=== PATIENT | female | born 2000 | race Caucasian/White ===

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

== ENCOUNTER → 2022-02-03 12:00 | Outpatient (BNVA) | payer OTHER, BC, MEDICAID, SELFPAY | PROVIDERS: PCP Family Medicine; Visit Provider Family Medicine | DX: Z34.00 Encounter for supervision of normal first pregnancy, unspecified trimester (principal) | CPT/HCPCS: 81511 ==

== ENCOUNTER 2022-03-05 07:19 | Outpatient (CLI) | payer OTHER, BC, MEDICAID, SELFPAY ==
--- NOTE | 2022-03-05 07:15 | US_ITS ---
WS: [id number] ULTRASOUND OB COMPLETE TECHNIQUE: Complete ultrasound. CLINICAL INFORMATION: Anatomy US - Please schedule for 8 weeks from now COMPARISON: December 22, 2021 FINDINGS: Cervix measures 2.7 cm Single interuterine gestation is identified with cephalic presentation. Placenta is anterior. Placenta grade 0. Normal amniotic fluid volume. cardiac activity: 141 BPM. AGA: 21w1d CURRY by ultrasound: 07/15/2022 Estimated weight: 397 g., %. BDP: 5.2 cm = 21w5d HC: 18.3 cm = 20w5d AC: 16.7 cm = 21w5d FEMUR LENGTH: 3.3 cm = 20w2d Anatomic survey: Anatomic survey is normal. Normal stomach. Kidneys and bladder are normal. Normal 3 vessel cord. Norm al 3 vessel cord insertion. Normal 4 chamber heart. Normal spine. Intracranial contents are normal. N ormal posterior fossa and cisterna magna. US/US OB >= 14 weeks fetus [id number] IMPRESSION: 1. Single intrauterine with visualized cardiac activity. AGA 21w1d w ith CURRY 07/15/2022. 2. Placenta is anterior. No evidence of abruption or previa. 3. anatomic survey is normal. 4. Normal amniotic fluid volume.
== END 2022-03-05 07:20 | disposition home or self-care (01) ==
LOC: RAD 07:19
PROVIDERS: PCP Family Medicine; Visit Provider Family Medicine
DX: Z36.89 Encounter for other specified antenatal screening (principal); Z3A.21 21 weeks gestation of pregnancy
CPT/HCPCS: 76805

== ENCOUNTER → 2022-04-07 14:18 | Outpatient (BNVA) | payer OTHER, BC, MEDICAID, SELFPAY | PROVIDERS: PCP Family Medicine; Visit Provider Family Medicine | DX: Z34.00 Encounter for supervision of normal first pregnancy, unspecified trimester (principal) | CPT/HCPCS: 82950 ==

== ENCOUNTER → 2022-05-27 12:57 | Outpatient (BNVA) | payer OTHER, BC, MEDICAID, SELFPAY | PROVIDERS: PCP Family Medicine; Visit Provider Family Medicine | DX: Z34.00 Encounter for supervision of normal first pregnancy, unspecified trimester (principal); R30.0 Dysuria | CPT/HCPCS: 81000; 85025; 87086 ==

== ENCOUNTER 2022-06-15 04:41 | Outpatient (CLI) | payer OTHER, BC, MEDICAID, SELFPAY ==
[2022-06-15 05:11] VITALS: BP 108/60; PULSE 99
[2022-06-15 05:13] VITALS: BMI 32.4
[2022-06-15 05:32] VITALS: BP 110/71; PULSE 97
[2022-06-15 05:37] VITALS: PULSE 100; RESP 16
[2022-06-15 05:51] VITALS: BP 114/69; PULSE 104
[2022-06-15 06:11] VITALS: BP 101/56; PULSE 84
[2022-06-15 06:28] LABS: Urine Appearance Clear (CLEAR); Urine Color Yellow (Yellow); pH Urine 7 (5-7)
[2022-06-15 06:29] LABS: Bilirubin Urine Neg (Negative); Blood Urine Neg (Negative); Glucose Urine UA Norm (Normal); Ketones Urine Negative (Negative); Leukocyte Esterase Urine Trace (Negative); Nitrate Urine Negative (Negative); Protein Urine Neg (Negative); Urobilinogen Urine Neg (Negative)
[2022-06-15 06:32] VITALS: BP 119/74; PULSE 92
[2022-06-15 06:34] LABS: Add Urine Culture? No; Amorphous Sediment Urine 1+ /hpf; Bacteria Urine TRACE /hpf; Mucus Urine 1+ /hpf; RBC Urine 0-4 /hpf (0-2); Squamous Epithelial Cell Urine 0-4 /hpf (0-5); WBC Urine 0-4 /hpf (0-5)
== END 2022-06-15 06:56 | disposition home or self-care (01) ==
LOC: OPOB 04:46 → OBGYN 04:47
PROVIDERS: PCP Family Medicine; Visit Provider Family Medicine
DX: O26.899 Other specified pregnancy related conditions, unspecified trimester (principal); N89.8 Other specified noninflammatory disorders of vagina; Z3A.00 Weeks of gestation of pregnancy not specified
CPT/HCPCS: 59025; 81001; 83986; 99211

== ENCOUNTER → 2022-06-24 13:34 | Outpatient (BNVA) | payer OTHER, BC, MEDICAID, SELFPAY | PROVIDERS: PCP Family Medicine; Visit Provider Family Medicine | DX: Z34.90 Encounter for supervision of normal pregnancy, unspecified, unspecified trimester (principal) | CPT/HCPCS: 87081 ==

== ENCOUNTER 2022-07-15 00:55 | Outpatient (CLI) | payer OTHER, BC, MEDICAID, SELFPAY ==
[2022-07-15 00:44] VITALS: BMI 34.0
[2022-07-15 01:04] VITALS: BP 119/83; PULSE 100
[2022-07-15 01:17] VITALS: RESP 18
[2022-07-15 01:19] VITALS: BP 117/83; PULSE 106
[2022-07-15 01:35] VITALS: BP 114/74; PULSE 87
[2022-07-15 01:40] LABS: Nitrazine Paper, PH Negative
[2022-07-15 01:41] VITALS: TEMP 36.2
[2022-07-15 02:05] VITALS: BP 108/75; PULSE 96
== END 2022-07-15 02:20 | disposition home or self-care (01) ==
LOC: OPOB 00:56 → OBGYN 00:57
PROVIDERS: PCP Family Medicine; Visit Provider Family Medicine
DX: O47.9 False labor, unspecified (principal); Z3A.00 Weeks of gestation of pregnancy not specified
CPT/HCPCS: 59025; 83986; 99211

== ENCOUNTER 2022-07-25 04:21 | Outpatient (CLI) | payer OTHER, BC, MEDICAID, SELFPAY ==
[2022-07-25 04:20] VITALS: BMI 34.0
[2022-07-25 04:32] VITALS: BP 119/84; PULSE 86
[2022-07-25 04:45] VITALS: TEMP 35.9
[2022-07-25 04:48] VITALS: BP 123/85; PULSE 86
[2022-07-25 06:23] VITALS: BP 132/83; PULSE 95
[2022-07-25 06:38] VITALS: BP 124/79; PULSE 91
[2022-07-25 06:45] VITALS: BP 124/79; PULSE 91; RESP 18
== END 2022-07-25 06:58 | disposition home or self-care (01) ==
LOC: OPOB 04:21 → OBGYN 04:24
PROVIDERS: PCP Family Medicine; Visit Provider Family Medicine
DX: O47.9 False labor, unspecified (principal); Z3A.00 Weeks of gestation of pregnancy not specified
CPT/HCPCS: 59025; 99211

== ENCOUNTER 2022-07-26 00:09 | Inpatient (IN) | payer OTHER, BC, MEDICAID, SELFPAY ==
[2022-07-25 22:00] VITALS: BMI 34.0
[2022-07-25 22:03] VITALS: BP 138/95; PULSE 115
[2022-07-25 22:08] VITALS: RESP 18; TEMP 36.6
[2022-07-25 22:18] VITALS: BP 124/79; PULSE 98
[2022-07-25 22:31] LABS: Actim Prom Negative
[2022-07-25 22:33] VITALS: BP 124/78; PULSE 105
[2022-07-25 22:48] VITALS: BP 108/68; PULSE 95
[2022-07-26] VITALS (57 sets, daily range): BP systolic 90–170; BP diastolic 52–108; PULSE 86–141; RESP 18; TEMP 36.2–37.9; O2SAT 91–98
[2022-07-26 00:24] LABS: Basophils # 0.1 10^3/uL (0.0-0.1); Basophils % 0.2 %; Eosinophils # 0.1 10^3/uL (0.0-0.8); Eosinophils % 0.4 %; Lymphocytes # 2.6 10^3/uL (1.5-6.5); Lymphocytes % 12.1 %; Mean Corpuscular HGB Conc 33.3 g/dL (30.0-36.0); Mean Corpuscular Hemoglobin 28.2 pg (28.0-34.0); Mean Corpuscular Volume 84.6 fl (81-99); Mean Platelet Volume 10.5 fL (7.4-10.4); Monocytes % 4.5 %; Neutrophils # 17.69 10^3/uL (1.8-8.0); Neutrophils % 81.8 %; Nucleated Red Blood Cells % 0 %; Platelet Count 266 10^3/cmm (130-400); Red Blood Count 4.61 10^6/uL (4.1-5.3); Red Cell Distribution Width 14.2 % (12.1-15.1); White Blood Count 21.6 10^3/uL (4.5-13.0)
[2022-07-26] MEDS: ampicillin 2,000 MG in sodium chloride 0.9% (plus) 50 ML 100 MG IV (00:24)
[2022-07-26] MEDS: lactated ringers 1,000 ML 999 ML IV (00:24)
--- NOTE | 2022-07-26 01:50 | P.ANESASSM_ITS ---
Pre-Anesthetic Assessment Height/Weight: Height 1.68 m Weight 95.708 kg Temp Pulse Resp BP Pulse Ox 97.9 F 117 H 18 143/60 97 07/25/22 22:08 07/26/22 01:43 07/25/22 22:08 07/26/22 01:43 07/26/22 01:43 Preop Diagnosis: IUP Labor Epidural Familial anesthetic complications: None Social No alcohol and No tobacco Exam alert, oriented x 3 and clear to auscultation bilaterally Airway Submandibular: within normal limits Cervical ROM: within normal limits Mallampati: Class II Dentition: full History/ROS No significant history except as noted Pulmonary None reported CV/HEM None reported None reported Hepatic None reported GI None reported Metabolic None reported Musc/skel None reported Neuropsych Anxiety and Depression Anesthetic Plan ASA status: 2 Anesthesia: Regional (specify below) Other: Labor Epidural Medications/Allergies Home Medications Medication Instructions Recorded Confirmed Last Taken Type msnxxhtt-hbz-Sg-FA 1 mg 1 tab PO DAILY 07/15/22 07/26/22 07/14/22 08:00 History tablet Allergies Allergy/AdvReac Type Severity Reaction Status Date / Time Sulfa (Sulfonamide Allergy ADR-Numbnes Verified 07/26/22 00:46 Antibiotics) s Current Medications Generic Name Dose Route Start Last Admin Trade Name Freq PRN Reason Stop Dose Admin Lactated Ringer's 1,000 mls @ 999 mls/hr 07/26/22 00:12 07/26/22 00:24 Lactated Ringers IV 999 mls/hr .Q1H1M PRN Administration See label comments PFSH Anesthesia Medical History No significant past medical history Surgical History No significant past surgical history [place] teeth extracted Social History Smoking and tobacco status: never smoked Alcohol intake: never Substance/Drug Use: never Female Reproductive History : 2 Data Anesthesia 07/26/22 00:15 Short CBC 07/26/22 Range/Units 00:15 WBC 21.6 H (4.5-13.0) 10^3/uL Hgb 13.0 (11.5-15.3) g/dL Hct 39.0 (37.0-47.0) % MCV 84.6 (81-99) fl Plt Count 266 (130-400) 10^3/cmm Neut % (Auto) 81.8 % Neut # (Auto) 17.69 H (1.8-8.0) 10^3/uL Cardiac Studies: No Data to Display Anesthesia Procedures Epidural Time Out Performed: Yes Consent: from patient, risks and benefits reviewed and patient agrees to proceed Lumbar Level: L3-L4 Epidural position: sitting Epidural procedure: sterile prep of area, 1% lidocaine to numb the area, negative for paresthesia passed, test dose given, 1.5% xylocaine 1:200k epi, placed PCEA, no systemic response, sterile dressing applied, L.U.D. no apparent complications and 0.2% Ropiavacaine @ mls/hr (13) Additional Comments: MASON at 7.5 cm catheter threaded to 14cm 100 mcg fentanyl given via epidural after test dose.
[2022-07-26] MEDS: dextrose 5%-lactated ringers 1,000 ML 125 ML IV (02:11)
[2022-07-26] MEDS: ampicillin 1,000 MG in sodium chloride 0.9% (plus) 50 ML 100 MG IV (04:18)
--- NOTE | 2022-07-26 07:16 | PM.HP ---
Providers/Chief Complaint Admitting Physician: Godfrey Morales MD Primary Care Provider: Sanket Tolliver MD Chief Complaint: contractions and possible ROM History of Present Illness Shelly Ramey is a 22 year old @ 40.4 weeks by LMP c/w 9 wk US. Preg c/b recent miscarriage (06/2021), anemia, anxiety on Lexapro. The patient presented to labor and delivery late in the evening on 07/25/2022 due to contractions. She had been having increased contractions over the last 36 hours, however they were worsening, so the she presented for further evaluation. She also had concern for spontaneous rupture of membranes. In triage her active problem was negative, however she did make change after 1 hour, so she was admitted for spontaneous labor. The patient feels well at this time. She has been ondina overnight and has received a laboring epidural. heart tones are in the 140s with moderate variability good accelerations. Contractions are every 2 to 3 minutes. The patient denies any bleeding. Medications/Allergies Home Medications Medication Instructions Recorded Confirmed Last Taken Type chgxikfl-tnz-Bv-FA 1 mg 1 tab PO DAILY 07/15/22 07/26/22 07/14/22 08:00 History tablet Allergies Allergy/AdvReac Type Severity Reaction Status Date / Time Sulfa (Sulfonamide Allergy ADR-Numbnes Verified 07/26/22 00:46 Antibiotics) s PFSH Acute PFSH: Medical History (Updated 07/26/22 @ 07:19 by Godfrey Morales MD) No significant past medical history Surgical History No significant past surgical history [place] teeth extracted Social History Smoking and tobacco status: never smoked Alcohol intake: never Substance/Drug Use: never Female Reproductive History: Date of last menstrual period: 10/15/21 : 2 Vitals/I&O/Wt Last Vital Signs Temp 97.2 F L 07/26/22 04:09 Pulse 141 H 07/26/22 07:12 Resp 18 07/25/22 22:08 BP 115/56 07/26/22 07:12 Pulse Ox 97 07/26/22 01:43 O2 Del Method Room Air 07/26/22 03:14 07/25/22 07/26/22 07/26/22 22:59 06:59 14:59 Intake Total 1100 / 1100 Balance 1100 / 1100 Weight last 48 hrs Weight 211 lb Physical Exam Narrative: General: Alert and oriented x3 Eyes: Pupils equal round and reactive to light and accommodation Mouth: Mucous membranes moist, pharynx non-erythematous Cardiac: Regular rate and rhythm without murmurs Lungs: Clear to auscultation bilaterally without wheezes, crackles or rhonchi Abdomen: Soft, non-tender, fundus consistent with gestational age Extremities: Trace edema in the bilateral lower extremities Urinary Catheter Management: Harvey Latex: Cath Placed During This Visit: yes Reason for Continuing Indwelling Catheter: Other Urinary Catheter Date of Insertion: 07/26/22 Urinary Catheter Time of Insertion: 02:08 Data 07/26/22 00:15 A&P Assessment and plan (1) Supervision of normal intrauterine in primigravida: The patient is doing well at this time. She has made good change overnight on her own and is now complete. We will start pushing. She had an elevated white blood cell count. She has not had any fevers. We will watch for other signs of chorioamnionitis. We will watch for any signs of complications. The patient has GBS and she has been receiving ampicillin for prophylaxis. Attestations Medical Necessity Statement*: The patient will be here for greater than 2 midnights due to routine intrapartum and management of labor and delivery. Coding Level of Care Code Acute Code for Chg Fwd Diagnoses Supervision of normal intrauterine in primigravida Z34.00
--- NOTE | 2022-07-26 08:39 | P.PCNOB_ITS ---
Delivery Note: Date of delivery: July 26, 2022 Pre-delivery diagnoses: 1. Intrauterine at 40.4 weeks gestation 2. Leukocytosis 3. Anxiety 4. Spontaneous labor Post-delivery diagnoses: 1. Intrauterine status post spontaneous vaginal delivery at 40.4 weeks gestation 2. Leukocytosis 3. Anxiety 4. Delivery of healthy female weighing 8 pounds 2 ounces with Apgars of 8 and 9 Procedure: Spontaneous vaginal delivery Repair of second-degree vaginal wall laceration Delivering Physician: Godfrey Morales MD Estimated blood loss (mL): 100 Findings: 1. Healthy infant female weighing 8 pounds 2 ounces with Apgars of 8 and 9 2. Second-degree right vaginal wall laceration with repair Pre-Delivery Course: Shelly Ramey is a 22 year old G2 now P1 status post spontaneous vaginal delivery @ 40.4 weeks by LMP c/w 9 wk US. Preg c/b recent miscarriage (06/2021), anemia, anxiety on Lexapro. The patient presented to labor and delivery late in the evening on 07/25/2022 due to contractions.? She had been having increased contractions over the last 36 hours, however they were worsening, so the she presented for further evaluation.? She also had concern for spontaneous rupture of membranes.? In triage her actim prom was negative, however she did make change after 1 hour, so she was admitted for spontaneous labor. She contracted overnight and has received a laboring epidural.? heart tones were category 1.? The patient made gradual change and spontaneous rupture of membranes took place at 3:28 AM on 07/26/2022. This was lightly stained with meconium. The patient continued to make steady change and was complete by 6:40 AM on 07/26/2022. Delivery: The patient began pushing at 6:55 AM on 07/26/2022. The patient pushed well and the delivered in the OA position at 8:04 AM on 07/26/2022. There was no nuchal cord. The left shoulder was anterior shoulder and it delivered with steady downward pressure. The right arm then delivered on its own across the 's body. The right shoulder then delivered with upward pressure. The rest of the infant delivered without complication. It was an uncomplicated delivery. The infant's nose and mouth were bulb suctioned by myself. The was vigorous at and cried immediately. The was placed on the mother's chest where the nurses were waiting to care for her. The cord was clamped by myself after approximately 1 minute and cut by the infant's father. Cord blood was obtained. The cord was then drained of blood and traction was placed on umbilical cord. Uterine massage was carried out and the placenta delivered without complication at 8:08 AM on 07/26/2022. The placenta was noted to be intact with a central umbilical cord insertion site. The uterus was massaged and IV Pitocin was bolused. There was initial heavy bleeding that decreased rapidly with IV Pitocin bolus. The cervix was inspected and no lacerations were noted. The vaginal wall was inspected and there is a small first-degree tear on the left vaginal wall. This was not bleeding and did not need suturing. There is another second-degree tear on the right vaginal wall and this was bleeding, so 3-0 Vicryl was used to repair the laceration in a running fashion. No further anesthesia was necessary as the epidural was giving sufficient anesthesia. A rectal exam was done and no sutures were noted in the rectal vault. The patient tolerated the procedure well. Currently both the mother and infant are doing well. History History History 2 Term 1 0 Miscarriages/Ectopic 1 Living Children 1 Past Pregnancies Del. Date GA/Weeks Outcome Route Wt Inf Gender Labor Lgth Comp. Anesth esia Location 06/18/21 8 spontaneous 07/26/22 40 live - full term Vaginal 8 lb 2 oz Female 8 [facility], [place], operated by [facility] A&P Assessment and plan (1) Spontaneous vaginal delivery: Coding Level of Care Code Acute Code for Chg Fwd Diagnoses Spontaneous vaginal delivery O80
[2022-07-26] MEDS: docusate sodium 100 mg Capsule PO (17:47)
[2022-07-26 21:49] LABS: Hematocrit 31.2 % (37.0-47.0); Hemoglobin 10.2 g/dL (11.5-15.3); Mean Corpuscular HGB Conc 32.7 g/dL (30.0-36.0); Mean Corpuscular Hemoglobin 28.2 pg (28.0-34.0); Mean Corpuscular Volume 86.2 fl (81-99); Mean Platelet Volume 10.4 fL (7.4-10.4); Platelet Count 239 10^3/cmm (130-400); Red Blood Count 3.62 10^6/uL (4.1-5.3); Red Cell Distribution Width 14.2 % (12.1-15.1); White Blood Count 24.4 10^3/uL (4.5-13.0)
[2022-07-27] VITALS (7 sets, daily range): BP systolic 111–120; BP diastolic 62–72; PULSE 78–101; RESP 17–18; TEMP 35.8–36.7
[2022-07-27] MEDS: docusate sodium 100 mg Capsule PO (09:58)
[2022-07-27] MEDS: benzocaine-menthol 78 gm Canister 1 SPRAY TOPICAL (14:20)
--- NOTE | 2022-07-27 14:31 | PM.DCS ---
Discharge Providers Date of Admission: 07/26/22 00:09 Date of Discharge: July 27, 2022 Attending Provider at Admission: Godfrey Morales MD Attending Provider at Discharge: Godfrey Morales MD Primary Care Provider: Sanket Tolliver MD Diagnoses at Discharge Discharge Diagnosis (1) Spontaneous vaginal delivery: Status: Resolved Other Information Additional DC diagnoses/information: 1.? Intrauterine status post spontaneous vaginal delivery at 40.4 weeks gestation 2.? Leukocytosis 3.? Anxiety 4.? Delivery of healthy female weighing 8 pounds 2 ounces with Apgars of 8 and 9 Reason for Visit Reason for Visit: contractions and possible ROM Brief History: Shelly Ramey is a 22 year old G2 now P1 status post spontaneous vaginal delivery @ 40.4 weeks by LMP c/w 9 wk US. Preg c/b recent miscarriage (06/2021), anemia, anxiety on Lexapro. The patient presented to labor and delivery late in the evening on 07/25/2022 due to contractions.? She had been having increased contractions over the last 36 hours, however they were worsening, so the she presented for further evaluation.? She also had concern for spontaneous rupture of membranes.? In triage her actim prom was negative, however she did make change after 1 hour, so she was admitted for spontaneous labor. Hospital Course Hospital Course She contracted overnight and has received a laboring epidural.? heart tones were category 1.? The patient made gradual change and spontaneous rupture of membranes took place at 3:28 AM on 07/26/2022.? This was lightly stained with meconium.? The patient continued to make steady change and was complete by 6:40 AM on 07/26/2022. The patient began pushing at 6:55 AM on 07/26/2022.? The patient pushed well and the delivered in the OA position at 8:04 AM on 07/26/2022.? The patient had an uncomplicated vaginal delivery. she has done well. She is breast-feeding well. Her pain is well controlled. Her bleeding is decreasing well. She is ambulating, voiding, passing gas and tolerating food by mouth. She is afebrile. Routine discharge instructions were discussed. All questions were answered. She is to let me know if she is having any concerns or complications prior to her follow-up appointment. The patient and her significant other are in agreement with the current plan of care. Physical Exam Urinary Catheter Management: Harvey Latex: Cath Placed During This Visit: yes, but has since been removed by the nurse Reason for Continuing Indwelling Catheter: Decision to DC Catheter Urinary Catheter Date of Insertion: 07/26/22 Urinary Catheter Time of Insertion: 02:08 Date Urinary Catheter Removed: 07/26/22 Time Urinary Catheter Discontinued: 06:55 Discharge Data Studies Completed and Pending Laboratory Results WBC 24.4 10^3/uL (4.5-13.0) H 07/26/22 21:19 RBC 3.62 10^6/uL (4.1-5.3) L 07/26/22 21:19 Hgb 10.2 g/dL (11.5-15.3) L 07/26/22 21:19 Hct 31.2 % (37.0-47.0) L 07/26/22 21:19 MCV 86.2 fl (81-99) 07/26/22 21:19 MCH 28.2 pg (28.0-34.0) 07/26/22 21:19 MCHC 32.7 g/dL (30.0-36.0) 07/26/22 21:19 RDW 14.2 % (12.1-15.1) 07/26/22 21:19 Plt Count 239 10^3/cmm (130-400) 07/26/22 21:19 MPV 10.4 fL (7.4-10.4) 07/26/22 21:19 Neut % (Auto) 81.8 % 07/26/22 00:15 Lymph % (Auto) 12.1 % 07/26/22 00:15 [place] % (Auto) 4.5 % 07/26/22 00:15 Eos % (Auto) 0.4 % 07/26/22 00:15 Baso % (Auto) 0.2 % 07/26/22 00:15 Neut # (Auto) 17.69 10^3/uL (1.8-8.0) H 07/26/22 00:15 Lymph # (Auto) 2.6 10^3/uL (1.5-6.5) 07/26/22 00:15 [place] # (Auto) 1.0 10^3/uL (0.2-0.9) H 07/26/22 00:15 Eos # (Auto) 0.1 10^3/uL (0.0-0.8) 07/26/22 00:15 Baso # (Auto) 0.1 10^3/uL (0.0-0.1) 07/26/22 00:15 Nucleated RBC % (auto) 0 % 07/26/22 00:15 Nucleated RBCs # 0.0 /100WBC 07/26/22 00:15 Insulin-like GF I Negative 07/25/22 22:10 Vitals Last Vital Signs Temp 96.6 F L 07/27/22 09:19 Pulse 78 07/27/22 09:20 Resp 18 07/27/22 09:00 BP 111/72 07/27/22 09:20 Pulse Ox 97 07/26/22 01:43 O2 Del Method Room Air 07/26/22 03:14 Discharge Plan Discharge Patient Disposition: Home Condition: Good Prescriptions: New ibuprofen 800 mg Tablet 800 mg PO TID Qty: 30 0RF Continued lvykqyxa-qtj-Wd-FA 1 mg Tablet 1 tab PO DAILY Discharge Orders: Discharge Order (Routine); Ordered 07/27/22 Ordered By: Godfrey Morales Referrals: Godfrey Morales MD [Physician] - 09/01/22 1:30 pm (Sooner if needed.) Discharge Diet: Regular Discharge Activity: Increase activity as tolerated Patient Instructions: Depression (DC), Bleeding (DC), Preeclampsia and Eclampsia After Delivery (GEN), Vaginal Delivery (DC), OB Discharge Report, OB Food/Drug Interaction Guide, Opioid Safety, OB Home Care, OB Proud Parent Packet Activity Restrictions/Additional Instructions: Nothing per vagina for 6 weeks. Showers are preferred instead of baths for the first 6 weeks. Discharge Attestations Time Spent in Discharge Care*: less than 30 min Quality Metrics Clinical Quality Measures [ No reported AMI, CVA or VTE this stay] Coding Level of Care Code Acute Code for Chg Fwd Diagnoses Spontaneous vaginal delivery O80
--- NOTE | 2022-07-27 16:47 | ANE.PACU2 ---
Inpatient post-anesthesia follow up: Airway intact: Yes Vital signs: Temperature 97.9 F Pulse Rate 85 Respiratory Rate 17 Blood Pressure 120/62 Pulse Oximetry 97 Oxygen Delivery Me thod Room Air Oxygen Flow Rate Fraction of Inspir ed Oxygen Hydration adequate: Yes Nausea and vomiting: No Pain level: 2 Mental status: Baseline
== END 2022-07-27 16:24 | disposition home or self-care (01) | DRG 807 ==
LOC: OPOB 00:10 → OBGYN 00:10
PROVIDERS: Admitting Provider Family Medicine; PCP Family Medicine; Visit Provider Family Medicine
DX: O48.0 Post-term pregnancy (principal); Z37.0 Single live birth; Z3A.40 40 weeks gestation of pregnancy; Z88.2 Allergy status to sulfonamides; O99.02 Anemia complicating childbirth; D64.9 Anemia, unspecified; O99.344 Other mental disorders complicating childbirth; O70.1 Second degree perineal laceration during delivery
CPT/HCPCS: 36415; 51702; 59025; 59409; 84112; 85025; 85027; 96374; 98960; 99211; J0290; J2795; J3010; J7040; J7120; J7121

== ENCOUNTER 2022-12-21 15:29 | Emergency (ER) | payer OTHER, BC, MEDICAID, SELFPAY ==
[2022-12-21 15:33] VITALS: BP 112/81; PULSE 110; RESP 17; TEMP 36.6; O2SAT 97; BMI 33.2
--- NOTE | 2022-12-21 16:15 | ED_ITS ---
Documented by User: [email or web address] Crenshaw 12/21/22 16:18 HPI - Nausea/Vomiting/Diarrhea General: Chief complaint: Nausea/Vomiting/Diarrhea Stated complaint: throwing up Time Seen by Provider: 12/21/22 15:46 Source: patient Mode of arrival: ambulatory Limitations: no limitations History of Present Illness: Patient is a 22-year-old female who presents to ED today [facility] for concerns of possible dehydration. Patient states she woke this morning with complaints of nausea, vomiting, diarrhea, abdominal cramping. She states she has had approximately 6 episodes of vomiting and 8 episodes of diarrhea total. She denies bloody emesis or stools. She is not running fevers. She does states she ate pork patties yesterday evening for dinner but states other people in the home also ate the meat and did not become ill. MD elicited complaint: nausea, vomiting, diarrhea and abdominal pain Description of diarrhea: watery Associated nausea: Yes Associated abdominal pain: Yes Location of pain: Diffuse Radiation: diffuse Pain consistency: intermittent Severity: mild Quality: cramping Exacerbating factors: eating Relieving factors: bowel movement Associated symtoms: Reports nausea; Denies chest pain, dysuria, fatigue, headache(s) or malaise Review of Systems Const: Denies: fever(s), chills, body aches, fatigue or malaise Card: Denies: chest pain Resp: Denies: dyspnea GI: Reports: abdominal pain, nausea, vomiting and diarrhea; Denies: hematemesis, hematochezia, melena, mucus in stool or white/light colored stool : Denies: flank pain, dysuria or hematuria Musc: Denies: neck pain, back pain, extremity pain or joint pain Skin/Breast: Denies: rash Neuro: Denies: headache(s), numbness in extremities, weakness in extremities or sensory changes PFS ED PFSH: Surgical History No significant past surgical history [place] teeth extracted Social History Smoking and tobacco status: never smoked Alcohol intake: never Substance/Drug Use: never Physical Exam Const: COMMON NORMALS: no acute distress, patient oriented x3, no limitations, alert and well nourished GENERAL APPEARANCE: cooperative NUTRITIONAL APPEARANCE: overweight ORIENTATION/CONSCIOUSNESS: Yes awake, Yes oriented to person, Yes oriented to place and Yes oriented to time Eye: COMMON NORMALS: no scleral icterus Resp: COMMON NORMALS: normal respiratory effort and clear to auscultation bilaterally AUSCULTATION: clear to auscultation bilaterally Cardio: COMMON NORMALS: regular rhythm RATE: tachycardic RHYTHM: regular rhythm GI: COMMON NORMALS: Normal to inspection, nondistended, normoactive bowel sounds present, Soft to palpation, non-tender, No hepatosplenomegaly present and no masses PALPATION: Yes Soft to palpation and Yes No hepatosplenomegaly present : COMMON NORMALS: Yes no CVA tenderness BLADDER/KIDNEY EXAM: Yes no CVA tenderness Back/Pelvis: COMMON NORMALS: no CVA tenderness Extremity: COMMON NORMALS: normal to inspection GENERAL: Yes normal exam except as noted Neuro: LIVAN COMA SCALE: document GCS findings Livan coma scale eye opening: Spontaneous Livan coma scale verbal response: Orientated Livan coma scale motor response: Obey commands [place] coma scale total score: 15 COMMON NORMALS: patient oriented x3, moves all extremities, no focal motor deficits and no sensory deficits noted SENSORIUM/ORIENTATION: Yes alert, Yes oriented to person, Yes oriented to place and Yes oriented to time MOTOR EXAM: 5/5 motor strength present throughout Skin: COMMON NORMALS: no rashes or lesions noted GENERAL SKIN EXAM: no rashes or lesions noted Course Vital Signs: Vital signs: Vital Signs Temperature 97.9 F 12/21/22 15:33 Pulse Rate 83 12/21/22 18:25 Respiratory Rate 16 12/21/22 18:25 Blood Pressure 133/83 12/21/22 18:25 Pulse Oximetry 98 12/21/22 18:25 Oxygen Delivery Me thod Room Air 12/21/22 17:47 MDM - Nausea/Vomiting/Diarrhea Lab Data 12/21/22 16:28 12/21/22 16:28 Laboratory Results WBC 14.62 10^3/uL (4.5-13.0) H 12/21/22 16:28 RBC 5.97 10^6/uL (3.85-5.65) H 12/21/22 16:28 Hgb 16.50 g/dL (12.4-14.8) H 12/21/22 16:28 Hct 50.1 % (36-47) H 12/21/22 16: MCV 83.9 fl (85-98) L 12/21/22 16: MCH 27.6 pg (27-33) 12/21/22 16: MCHC 32.9 g/dL (30-55) 12/21/22 16: RDW 14.5 % (12.1-15.1) 12/21/22 16: Plt Count 317 10^3/cmm (157-399) 12/21/22 16: MPV 9.8 fL (7.4-10.4) 12/21/22 16: Neut % (Auto) 89.7 % 12/21/22 16: Lymph % (Auto) 5.5 % 12/21/22 16: [place] % (Auto) 4.2 % 12/21/22 16: Eos % (Auto) 0.2 % 12/21/22 16: Baso % (Auto) 0.1 % 12/21/22 16: Neut # (Auto) 13.10 10^3/uL (1.8-8.0) H 12/21/22 16: Lymph # (Auto) 0.8 10^3/uL (1.5-6.5) L 12/21/22 16: [place] # (Auto) 0.6 10^3/uL (0.2-0.9) 12/21/22 16: Eos # (Auto) 0.0 10^3/uL (0.0-0.8) 12/21/22 16: Baso # (Auto) 0.0 10^3/uL (0.0-0.1) 12/21/22 16: Nucleated RBC % (auto) 0 % 12/21/22 16: Nucleated RBCs # 0.0 /100WBC 12/21/22 16: Sodium 141 mmol/L (136-145) 12/21/22 16: Potassium 4.1 mmol/L (3.5-5.1) 12/21/22 16: Chloride 102 mmol/L (98-107) 12/21/22 16: Carbon Dioxide 26 mmol/L (22-29) 12/21/22 16:28 Anion Gap 17.1 (5-19) 12/21/22 16:28 BUN 14 mg/dL (6-20) 12/21/22 16:28 Creatinine 0.9 mg/dL (0.5-0.9) 12/21/22 16:28 GFR Calculation 79.8 mL/min (90-130) L 12/21/22 16:28 Glucose 95 mg/dL (65-115) 12/21/22 16:28 Calculated Osmolality 292 mOsm/kg (285-295) 12/21/22 16:28 Calcium 9.5 mg/dL (8.5-10.5) 12/21/22 16:28 Total Bilirubin 0.4 mg/dL (0.15-1.2) 12/21/22 16:28 AST 21 U/L (0-32) 12/21/22 16:28 ALT 20 U/L (0-33) 12/21/22 16:28 Alkaline Phosphatase 158 U/L (35-105) H 12/21/22 16:28 Total Protein 8.2 g/dL (6.6-8.7) 12/21/22 16:28 Albumin 4.8 g/dL (3.5-5.2) 12/21/22 16:28 Globulin 3.4 g/dL (1.3-4.6) 12/21/22 16:28 Lipase 33 U/L (13-60) 12/21/22 16:28 HCG, Qual Negative (Negative) 12/21/22 16:28 Urine Color Yellow (Yellow) 12/21/22 17:43 Urine Appearance Clear (CLEAR) 12/21/22 17:43 Urine pH 5 (5-7) 12/21/22 17:43 Ur Specific [place] 1.020 (1.005-1.030) 12/21/22 17:43 Urine Protein Neg (Negative) 12/21/22 17:43 Urine Glucose (UA) Norm (Normal) 12/21/22 17:43 Urine Ketones 3+ (Negative) H 12/21/22 17:43 Urine Blood Neg (Negative) 12/21/22 17:43 Urine Nitrate Negative (Negative) 12/21/22 17:43 Urine Bilirubin Neg (Negative) 12/21/22 17:43 Urine Urobilinogen Norm mg/dL (Negative) 12/21/22 17:43 Ur Leukocyte Esterase Trace (Negative) H 12/21/22 17:43 Urine RBC None /hpf (0-2) 12/21/22 17:43 Urine WBC 5-10 /hpf (0-5) H 12/21/22 17:43 Ur Squamous Epith Cells 5-10 /hpf (0-5) H 12/21/22 17:43 Amorphous Sediment Not Reportable 12/21/22 17:43 Urine Bacteria 1+ /hpf (NONE) H 12/21/22 17:43 Urine Mucus 1+ /hpf 12/21/22 17:43 Discharge Plan Discharge Patient Disposition: Home Clinical Impression: Gastroenteritis Condition: Stable Prescriptions: New ondansetron 4 mg tablet,disintegrating 4 mg PO Q8H PRN (Reason: nausea and vomiting) Qty: 10 0RF hydrocodone-acetaminophen 5-325 mg tablet 1 tab PO Q8H PRN (Reason: pain (scale score 7-10)) Qty: 6 0RF No Action ibuprofen 800 mg Tablet 800 mg PO TID Qty: 30 0RF uvnmglcb-miq-Yj-FA 1 mg Tablet 1 tab PO DAILY Discharge Orders: Discharge ED (Routine); Ordered 12/21/22 Ordered By: Nick Padilla Referrals: Sanket Tolliver MD [Primary Care Provider] - Discharge Diet: Usual diet Discharge Activity: Increase activity as tolerated Patient Instructions: Gastroenteritis (ED) Activity Restrictions/Additional Instructions: Drink frequent sips of fluid to maintain hydration. Use an electrolyte solution such as Pedialyte or diluted Gatorade. Use a dancer James 4 mg every 8 hours as needed for nausea and vomiting. Use hydrocodone for severe pain. Use acetaminophen 1000 mg every 8 hours as needed to control pain. Follow-up with primary care as needed. Return to ER for worsening symptoms such as blood in vomit or stool, shortness of breath, fever greater than 100.4, or severe abdominal pain. Sign Out Sign Out Data: Patient Sign Out occurred on 12/21/22 at 17:02. Patient's care was discussed, and care was transferred from to Nick Padilla. Coding Level of Care Code ED Pretzel Packer for Chg Fwd Documented by User: DANIE Winters 12/21/22 18:30 HPI - Nausea/Vomiting/Diarrhea General: Chief complaint: Nausea/Vomiting/Diarrhea Stated complaint: throwing up Time Seen by Provider: 12/21/22 15:46 PFSH ED PFSH: Surgical History No significant past surgical history [place] teeth extracted Social History Smoking and tobacco status: never smoked Alcohol intake: never Substance/Drug Use: never Physical Exam Neuro: LIVAN COMA SCALE: document GCS findings Livan coma scale total score: 15 Course Vital Signs: Vital signs: Vital Signs Temperature 97.9 F 12/21/22 15:33 Pulse Rate 83 12/21/22 18:25 Respiratory Rate 16 12/21/22 18:25 Blood Pressure 133/83 12/21/22 18:25 Pulse Oximetry 98 12/21/22 18:25 Oxygen Delivery Me thod Room Air 12/21/22 17:47 MDM - Nausea/Vomiting/Diarrhea Medical Decision Making 22-year-old female comes in today for complaints of nausea vomiting diarrhea starting this morning. Patient was seen at urgent care and was referred to the ER for concerns of dehydration. On exam patient appeared nontoxic. Patient did report some improvement in symptoms since receiving IV fluids. Laboratory values were unremarkable. Patient appears stable. Reviewed exam with patient with recommendations for treatment and follow-up. Patient reported understanding and agreed to plan. Differential diagnosis considered was gastroenteritis, gallbladder disease, dehydration, urinary tract infection. Treatment for gastroenteritis was reviewed with patient with monitoring for worsening symptoms. Patient reported understanding and agreed to plan. Lab Data 12/21/22 16:28 12/21/22 16:28 Laboratory Results WBC 14.62 10^3/uL (4.5-13.0) H 12/21/22 16:28 RBC 5.97 10^6/uL (3.85-5.65) H 12/21/22 16:28 Hgb 16.50 g/dL (12.4-14.8) H 12/21/22 16:28 Hct 50.1 % (36-47) H 12/21/22 16: MCV 83.9 fl (85-98) L 12/21/22 16: MCH 27.6 pg (27-33) 12/21/22 16: MCHC 32.9 g/dL (30-55) 12/21/22 16: RDW 14.5 % (12.1-15.1) 12/21/22 16: Plt Count 317 10^3/cmm (157-399) 12/21/22 16: MPV 9.8 fL (7.4-10.4) 12/21/22 16: Neut % (Auto) 89.7 % 12/21/22 16: Lymph % (Auto) 5.5 % 12/21/22 16: [place] % (Auto) 4.2 % 12/21/22 16: Eos % (Auto) 0.2 % 12/21/22 16: Baso % (Auto) 0.1 % 12/21/22 16: Neut # (Auto) 13.10 10^3/uL (1.8-8.0) H 12/21/22 16: Lymph # (Auto) 0.8 10^3/uL (1.5-6.5) L 12/21/22 16: [place] # (Auto) 0.6 10^3/uL (0.2-0.9) 12/21/22 16: Eos # (Auto) 0.0 10^3/uL (0.0-0.8) 12/21/22 16: Baso # (Auto) 0.0 10^3/uL (0.0-0.1) 12/21/22 16: Nucleated RBC % (auto) 0 % 12/21/22 16: Nucleated RBCs # 0.0 /100WBC 12/21/22 16: Sodium 141 mmol/L (136-145) 12/21/22 16: Potassium 4.1 mmol/L (3.5-5.1) 12/21/22 16: Chloride 102 mmol/L (98-107) 12/21/22 16: Carbon Dioxide 26 mmol/L (22-29) 12/21/22 16: Anion Gap 17.1 (5-19) 12/21/22 16:28 BUN 14 mg/dL (6-20) 12/21/22 16:28 Creatinine 0.9 mg/dL (0.5-0.9) 12/21/22 16:28 GFR Calculation 79.8 mL/min (90-130) L 12/21/22 16:28 Glucose 95 mg/dL (65-115) 12/21/22 16:28 Calculated Osmolality 292 mOsm/kg (285-295) 12/21/22 16:28 Calcium 9.5 mg/dL (8.5-10.5) 12/21/22 16:28 Total Bilirubin 0.4 mg/dL (0.15-1.2) 12/21/22 16:28 AST 21 U/L (0-32) 12/21/22 16:28 ALT 20 U/L (0-33) 12/21/22 16:28 Alkaline Phosphatase 158 U/L (35-105) H 12/21/22 16:28 Total Protein 8.2 g/dL (6.6-8.7) 12/21/22 16:28 Albumin 4.8 g/dL (3.5-5.2) 12/21/22 16:28 Globulin 3.4 g/dL (1.3-4.6) 12/21/22 16:28 Lipase 33 U/L (13-60) 12/21/22 16:28 HCG, Qual Negative (Negative) 12/21/22 16:28 Urine Color Yellow (Yellow) 12/21/22 17:43 Urine Appearance Clear (CLEAR) 12/21/22 17:43 Urine pH 5 (5-7) 12/21/22 17:43 Ur Specific [place] 1.020 (1.005-1.030) 12/21/22 17:43 Urine Protein Neg (Negative) 12/21/22 17:43 Urine Glucose (UA) Norm (Normal) 12/21/22 17:43 Urine Ketones 3+ (Negative) H 12/21/22 17:43 Urine Blood Neg (Negative) 12/21/22 17:43 Urine Nitrate Negative (Negative) 12/21/22 17:43 Urine Bilirubin Neg (Negative) 12/21/22 17:43 Urine Urobilinogen Norm mg/dL (Negative) 12/21/22 17:43 Ur Leukocyte Esterase Trace (Negative) H 12/21/22 17:43 Urine RBC None /hpf (0-2) 12/21/22 17:43 Urine WBC 5-10 /hpf (0-5) H 12/21/22 17:43 Ur Squamous Epith Cells 5-10 /hpf (0-5) H 12/21/22 17:43 Amorphous Sediment Not Reportable 12/21/22 17:43 Urine Bacteria 1+ /hpf (NONE) H 12/21/22 17:43 Urine Mucus 1+ /hpf 12/21/22 17:43 No radiology studies performed this visit Discharge Plan Discharge Patient Disposition: Home Clinical Impression: Gastroenteritis Condition: Stable Prescriptions: New ondansetron 4 mg tablet,disintegrating 4 mg PO Q8H PRN (Reason: nausea and vomiting) Qty: 10 0RF hydrocodone-acetaminophen 5-325 mg tablet 1 tab PO Q8H PRN (Reason: pain (scale score 7-10)) Qty: 6 0RF No Action ibuprofen 800 mg Tablet 800 mg PO TID Qty: 30 0RF [id number]-[id number]-FA 1 mg Tablet 1 tab PO DAILY Discharge Orders: Discharge ED (Routine); Ordered 12/21/22 Ordered By: Nick Padilla Referrals: Sanket Tolliver MD [Primary Care Provider] - Discharge Diet: Usual diet Discharge Activity: Increase activity as tolerated Patient Instructions: Gastroenteritis (ED) Activity Restrictions/Additional Instructions: Drink frequent sips of fluid to maintain hydration. Use an electrolyte solution such as Pedialyte or diluted Gatorade. Use a dancer James 4 mg every 8 hours as needed for nausea and vomiting. Use hydrocodone for severe pain. Use acetaminophen 1000 mg every 8 hours as needed to control pain. Follow-up with primary care as needed. Return to ER for worsening symptoms such as blood in vomit or stool, shortness of breath, fever greater than 100.4, or severe ab dominal pain. Sign Out Sign Out Data: Patient Sign Out occurred on 12/21/22 at 17:02. Patient's care was discussed, and care was transferred from to Nick Padilla. Coding Level of Care Code ED Pretzel Packer for Helena Staton
[2022-12-21] MEDS: sodium chloride 0.9% 1,000 ML 999 ML IV (16:27)
[2022-12-21] MEDS: ondansetron 2 mg/ML SDV 2 mL 4 MG IVP (16:27)
[2022-12-21 16:45] LABS: Basophils % 0.1 %; Eosinophils % 0.2 %; Hematocrit 50.1 % (36-47); Lymphocytes # 0.8 10^3/uL (1.5-6.5); Lymphocytes % 5.5 %; Mean Corpuscular HGB Conc 32.9 g/dL (30-55); Mean Corpuscular Hemoglobin 27.6 pg (27-33); Mean Corpuscular Volume 83.9 fl (85-98); Mean Platelet Volume 9.8 fL (7.4-10.4); Monocytes # 0.6 10^3/uL (0.2-0.9); Monocytes % 4.2 %; Neutrophils % 89.7 %; Nucleated Red Blood Cells % 0 %; Platelet Count 317 10^3/cmm (157-399); Red Blood Count 5.97 10^6/uL (3.85-5.65); Red Cell Distribution Width 14.5 % (12.1-15.1); White Blood Count 14.62 10^3/uL (4.5-13.0)
[2022-12-21 16:55] LABS: HCG, Serum Qual Negative (Negative)
[2022-12-21 17:00] LABS: Alanine Aminotransferase 20 U/L (0-33); Albumin Level 4.8 g/dL (3.5-5.2); Alkaline Phosphatase 158 U/L (35-105); Anion Gap 17.1 (5-19); Aspartate Amino Transferase 21 U/L (0-32); Blood Urea Nitrogen 14 mg/dL (6-20); Calcium 9.5 mg/dL (8.5-10.5); Carbon Dioxide 26 mmol/L (22-29); Chloride 102 mmol/L (98-107); Globulin 3.4 g/dL (1.3-4.6); Glomerular Filtration Rate 79.8 mL/min (90-130); Glucose 95 mg/dL (65-115); Lipase 33 U/L (13-60); Osmolality Calculated 292 mOsm/kg (285-295); Potassium 4.1 mmol/L (3.5-5.1); Sodium 141 mmol/L (136-145); Total Bilirubin 0.4 mg/dL (0.15-1.2); Total Protein 8.2 g/dL (6.6-8.7)
[2022-12-21 17:47] VITALS: BP 133/83; PULSE 83; RESP 16; O2SAT 98
[2022-12-21 18:02] LABS: Urine Appearance Clear (CLEAR); Urine Color Yellow (Yellow); pH Urine 5 (5-7)
[2022-12-21 18:03] LABS: Add Urine Culture? No; Add Urine Microscopic? YES; Bacteria Urine 1+ /hpf; Bilirubin Urine Neg (Negative); Blood Urine Neg (Negative); Glucose Urine UA Norm (Normal); Ketones Urine 3+ (Negative); Leukocyte Esterase Urine Trace (Negative); Mucus Urine 1+ /hpf; Nitrate Urine Negative (Negative); Protein Urine Neg (Negative); Urobilinogen Urine Norm (Negative)
[2022-12-21 18:25] VITALS: BP 133/83; PULSE 83; RESP 16; O2SAT 98
== END 2022-12-21 18:26 | disposition home or self-care (01) ==
PROVIDERS: Physician Assistant; Emergency Provider Nurse Practitioner Family; PCP Family Medicine
DX: K52.9 Noninfective gastroenteritis and colitis, unspecified (principal)
CPT/HCPCS: 80053; 81001; 83690; 84703; 85025; 96361; 96374; 99284; J2405; J7030

== ENCOUNTER → 2023-03-25 13:42 | Outpatient (BNVA) | payer OTHER, BC, MEDICAID, SELFPAY | PROVIDERS: PCP Family Medicine; Visit Provider Family Medicine | DX: Z34.80 Encounter for supervision of other normal pregnancy, unspecified trimester (principal) | CPT/HCPCS: 80307; 84144; 84443; 84702; 85025; 86592; 86705; 86706; 86709; 86762; 86803; 86850; 86900; 87086; 87340; 87491; 87591; 87624; 87806 ==

== ENCOUNTER 2023-04-07 06:28 | Outpatient (CLI) | payer OTHER, MEDICAID, BC, SELFPAY ==
--- NOTE | 2023-04-07 07:00 | USR_ITS ---
PROCEDURE INFORMATION: Exam: US First Trimester, Transabdominal Exam date and time: 04/07/2023 7:03 AM Age: 23 years old Clinical indication: Screening exam; Routine US, uterus; Additional info: Dating US 1-2 weeks from now LABS AND CLINICAL REPORTS: Last menstrual period start date: 01/20/2023 Gestational age (Established): 11 w 0 d Estimated due date (Established): 10/27/2023 TECHNIQUE: Imaging protocol: Real-time transabdominal obstetrical ultrasound of the maternal pelvis and a first trimester , less than 14 weeks 0 days, with image documentation. COMPARISON: US OB >= 14 weeks fetus [id number] 03/05/2022 7:36 AM FINDINGS: GESTATION: Gestation: Single Intrauterine gestation. Yolk sac is unremarkable. Embryonic/ heart rate: There is no evidence of cardiac activity. This is likely due to early age. Extra-embryonic membranes/Placenta: Unremarkable. No subchorionic bleed. Amniotic fluid: Amniotic and extra-amniotic fluid are normal for gestational age. BIOMETRY: Gestational age (AUA): 6 w 1 d [place]-Rump length: 3.3 mm. EGA (CRL) is 6 w 0 d Mean sac diameter: 1.2 cm. EGA (MSD) is 6 w 1 d MATERNAL: Uterus: Uterus measures 4.38 cm x 5.44 cm x 5.84 cm. Cervix: Unremarkable. Right ovary/adnexa: Complex cyst 2.9 cm x 2.7 cm x 2 cm. There is a thin rim of ovarian tissue around the cyst. Left ovary/adnexa: Complex cyst 1.3 cm x 1 cm x 1.1 cm Intraperitoneal space: No intraperitoneal free fluid. US/US OB <=14 wk fetus w transvag IMPRESSION: 1. Intrauterine gestational sac with a fetus and yolk sac. 2. Negative for cardiac activity likely due to early age. 3. Gestational age 6 weeks 1 day 4. Complex cyst bilateral ovaries.
== END 2023-04-07 06:29 | disposition home or self-care (01) ==
LOC: RAD 06:29
PROVIDERS: PCP Family Medicine; Visit Provider Family Medicine
DX: Z34.81 Encounter for supervision of other normal pregnancy, first trimester (principal)
CPT/HCPCS: 76801; 76817

== ENCOUNTER 2023-04-08 18:15 | Emergency (ER) | payer OTHER, BC, SELFPAY ==
[2023-04-08 18:27] VITALS: BP 122/85; PULSE 93; RESP 14; TEMP 36.9; O2SAT 100; BMI 34.7
--- NOTE | 2023-04-08 18:58 | ED_ITS ---
HPI - 2 General: Chief complaint: OB/Uterine Contractions Stated complaint: vag bleeding, preg Time Seen by Provider: 04/08/23 18:55 History of Present Illness: Patient presents to the ER with complaints of vaginal bleeding. Patient states she is approximately 6 weeks and 1 day . Patient had an ultrasound that confirms this yesterday. Patient states she is having clots. Is gone through 3-4 pads. Also experiencing headache dizziness and cramps. Patient has a history of 1 miscarriage. Date of Last Menstrual Period: 01/20/23 Review of Systems 2 General: Reports: 10 or more systems reviewed and unremarkable except in HPI and below PFSH ED 2 PFSH: Surgical History [place] teeth extracted No significant past surgical history Social History Smoking and tobacco/nicotine status: never used tobacco/nicotine Alcohol intake: never Substance/Drug Use: never Female Reproductive History: Date of last menstrual period: 01/20/23 Physical Exam 2 Const: COMMON NORMALS: no acute distress, average body habitus, patient oriented x3, no limitations, healthy appearing, alert and well nourished HENMT: COMMON NORMALS: normocephalic, atraumatic, hearing grossly normal bilaterally, external ears normal, Normal external nose present, moist oral mucous membranes and oropharynx normal HEAD & SCALP: normocephalic and atraumatic NOSE: Normal external nose present EXTERNAL EAR: Yes external ears normal Neck/C-Spine: COMMON NORMALS: full ROM, no lymphadenopathy, supple, no meningeal signs, no JVD and Thyroid normal THYROID: Thyroid normal Chest: COMMONS NORMALS: normal inspection of the chest and normal palpation of entire chest wall Resp: COMMON NORMALS: normal respiratory effort, No retractions, No use of accessory muscles and clear to auscultation bilaterally AUSCULTATION: clear to auscultation bilaterally Cardio: COMMON NORMALS: no JVD, regular rate, regular rhythm, S1 normal heart sound present, S2 normal heart sound present, No gallops present (Cardio), No clicks present (Cardio), No murmurs present (Cardio) and No rub (Cardio) R ATE: regular rate RHYTHM: regular rhythm HEART SOUNDS: S1 normal heart sound present and S2 normal heart sound present GI: COMMON NORMALS: Normal to inspection, nondistended, normoactive bowel sounds present, Soft to palpation, non-tender, No hepatosplenomegaly present and no masses PALPATION: Yes Soft to palpation and Yes No hepatosplenomegaly present Neuro: COMMON NORMALS: patient oriented x3 SENSORIUM/ORIENTATION: Yes alert MENINGEAL SIGNS: Yes no meningeal signs Course 2 Vital Signs: Vital signs: Vital Signs Temperature 98.4 F 04/08/23 18:27 Pulse Rate 88 04/08/23 21:06 Respiratory Rate 14 04/08/23 18:27 Blood Pressure 105/83 04/08/23 21:06 Pulse Oximetry 97 04/08/23 21:06 Oxygen Delivery Me thod Room Air 04/08/23 21:06 MDM - OB/Uterine Contractions Medical Decision Making Patient presents to the ER with vaginal bleeding and clots. Patient should be about 6 weeks and 1 day per ultrasound yesterday. Review of patient's chart showed a beta-hCG done on 1221 higher than her beta-hCG today. An ultrasound today did not show a sac. I had a long talk with the patient's about the ramifications of this screening she had spontaneous miscarriage and they were understanding. I told them they should follow back up with her family practice doctor who does OB or with her OB doctor. Differential Diagnosis Unlikely normal delivery at term, hemorrhage, -induced hypertension, premature labor, pre-eclampsia or eclampsia Medical Records I reviewed the patient's medical records. Lab Data I reviewed the patient's lab results. 04/08/23 19:05 Radiology Impressions Obstetrics Ultrasound 04/08/23 19:37 IMPRESSION: The endometrium is heterogeneous in attenuation and thickened measuring up to 10 mm. No intrauterine identified. While no ectopic is visualized this can not be excluded by ultrasound. Consider serial beta HCG level testing and if clinically indicated repeat pelvic ultrasound. Laboratory Results WBC 15.02 10^3/uL (3.29-11.43) H 04/08/23 19:05 RBC 5.18 10^6/uL (3.85-5.65) 04/08/23 19:05 Hgb 14.60 g/dL (11.27-16.99) 04/08/23 19:05 Hct 44.0 % (36-47) 04/08/23 19:05 MCV 84.9 fl (85-98) L 04/08/23 19:05 MCH 28.2 pg (27-33) 04/08/23 19:05 MCHC 33.2 g/dL (30-55) 04/08/23 19:05 RDW 13.0 % (12.1-15.1) 04/08/23 19:05 Plt Count 314 10^3/cmm (157-399) 04/08/23 19:05 MPV 9.6 fL (7.4-10.4) 04/08/23 19:05 Neut % (Auto) 80.4 % 04/08/23 19:05 Lymph % (Auto) 14.2 % 04/08/23 19:05 [place] % (Auto) 4.6 % 04/08/23 19:05 Eos % (Auto) 0.3 % 04/08/23 19:05 Baso % (Auto) 0.2 % 04/08/23 19:05 Neut # (Auto) 12.08 10^3/uL (1.8-7.7) H 04/08/23 19:05 Lymph # (Auto) 2.1 10^3/uL (0.8-4.8) 04/08/23 19:05 [place] # (Auto) 0.7 10^3/uL (0.2-0.9) 04/08/23 19:05 Eos # (Auto) 0.0 10^3/uL (0.0-0.8) 04/08/23 19:05 Baso # (Auto) 0.0 10^3/uL (0.0-0.1) 04/08/23 19:05 Nucleated RBC % (auto) 0 % 04/08/23 19:05 Nucleated RBCs # 0.0 /100WBC 04/08/23 19:05 Ser , Semi-Qnt 2757.00 mIU/mL 04/08/23 19:05 All radiology interpretation(s) finalized by discharge Discharge Plan Discharge Patient Disposition: Home Clinical Impression: Spontaneous miscarriage Condition: Stable Prescriptions: No Action Probiotic PO biestnjc-[id number]-Cp-FA 1 mg Tablet 1 tab PO DAILY Discharge Orders: Discharge ED (Routine); Ordered 04/08/23 Ordered By: Jono Cosme Referrals: Sanket Tolliver MD [Primary Care Provider] - 1 week Patient Instructions: Miscarriage (ED) Activity Restrictions/Additional Instructions: Please follow back up with your family doctor or OB within next 7 to 10 days for further evaluation and treatment. Coding Level of Care Code ED Flight Communications Specialist for Helena Staton
[2023-04-08 19:29] LABS: Basophils % 0.2 %; Eosinophils % 0.3 %; Lymphocytes # 2.1 10^3/uL (0.8-4.8); Lymphocytes % 14.2 %; Mean Corpuscular HGB Conc 33.2 g/dL (30-55); Mean Corpuscular Hemoglobin 28.2 pg (27-33); Mean Corpuscular Volume 84.9 fl (85-98); Mean Platelet Volume 9.6 fL (7.4-10.4); Monocytes # 0.7 10^3/uL (0.2-0.9); Monocytes % 4.6 %; Neutrophils # 12.08 10^3/uL (1.8-7.7); Neutrophils % 80.4 %; Nucleated Red Blood Cells % 0 %; Platelet Count 314 10^3/cmm (157-399); Red Blood Count 5.18 10^6/uL (3.85-5.65); White Blood Count 15.02 10^3/uL (3.29-11.43)
--- NOTE | 2023-04-08 19:37 | USR_ITS ---
PROCEDURE INFORMATION: Exam: US , Limited Exam date and time: 04/08/2023 8:20 PM Age: 23 years old Clinical indication: Lmp or gestational age (in weeks): 6w 1d; Antepartum complications; Bleeding; ; Additional info: Vaginal bleeding, cramps, 6 weeks gestation TECHNIQUE: Imaging protocol: Real-time ultrasound of the maternal uterus with image documentation. Exam focused on the clinical indication. COMPARISON: US OB <=14 wk fetus w transvag 04/07/2023 7:03 AM FINDINGS: Gestation: See Uterus finding. MATERNAL: Uterus: The endometrium is heterogeneous in attenuation and thickened measuring up to 10 mm. No intrauterine identified. While no ectopic is visualized this can not be excluded by ultrasound. Consider serial beta HCG level testing and if clinically indicated repeat pelvic ultrasound. The uterus measures 7.9 x 4.5 x 4.2 cm and 79 mL. Right ovary/adnexa: The right ovary measures 4.4 x 3.5 x 2.2 cm in 17.2 mL with vascular flow. There is a 2.0 cm simple appearing follicle in the right ovary. Left ovary/adnexa: The left ovary measures 3.0 x 2.4 x 1.7 cm in 6.4 mL with vascular flow. US/US OB limited [id number] IMPRESSION: The endometrium is heterogeneous in attenuation and thickened measuring up to 10 mm. No intrauterine identified. While no ectopic is visualized this can not be excluded by ultrasound. Consider serial beta HCG level testing and if clinically indicated repeat pelvic ultrasound.
[2023-04-08 21:06] VITALS: BP 105/83; PULSE 88; O2SAT 97
[2023-04-08 21:49] VITALS: BP 105/83; PULSE 92; RESP 18; O2SAT 100
== END 2023-04-08 21:50 | disposition home or self-care (01) ==
PROVIDERS: Emergency Medicine; Emergency Provider Emergency Medicine; PCP Family Medicine
DX: O03.9 Complete or unspecified spontaneous abortion without complication (principal)
CPT/HCPCS: 76815; 84702; 85025; 99284

== ENCOUNTER → 2023-04-16 11:37 | Outpatient (BNVA) | payer OTHER, MEDICAID, BC, SELFPAY | PROVIDERS: PCP Family Medicine; Visit Provider Family Medicine | DX: Z34.81 Encounter for supervision of other normal pregnancy, first trimester (principal) | CPT/HCPCS: 84144; 84702 ==

== ENCOUNTER → 2023-05-19 11:09 | Outpatient (BNVA) | payer OTHER, MEDICAID, BC, SELFPAY | PROVIDERS: PCP Family Medicine; Visit Provider Family Medicine | DX: O03.9 Complete or unspecified spontaneous abortion without complication (principal) | CPT/HCPCS: 84702 ==

== ENCOUNTER 2023-05-28 18:19 | Emergency (ER) | payer OTHER, BC, MEDICAID, SELFPAY ==
[2023-05-28 18:24] VITALS: BP 131/79; PULSE 82; RESP 14; TEMP 36.7; O2SAT 99
[2023-05-28 18:43] LABS: Add Urine Microscopic? NO; Bilirubin Urine Neg (Negative); Blood Urine Neg (Negative); Glucose Urine UA Norm (Normal); Ketones Urine 1+ (Negative); Leukocyte Esterase Urine Negative (Negative); Nitrate Urine Negative (Negative); Protein Urine Neg (Negative); Urine Appearance Clear (CLEAR); Urine Color Yellow (Yellow); Urobilinogen Urine Norm (Negative); pH Urine 5 (5-7)
[2023-05-28 18:45] LABS: Charge for UA Resulting for Rev
[2023-05-28 19:01] LABS: Basophils % 0.2 %; Eosinophils # 0.1 10^3/uL (0.0-0.8); Hematocrit 43.4 % (36-47); Lymphocytes # 2.8 10^3/uL (0.8-4.8); Lymphocytes % 27.8 %; Mean Corpuscular HGB Conc 32.9 g/dL (30-55); Mean Corpuscular Hemoglobin 28.7 pg (27-33); Mean Platelet Volume 9.4 fL (7.4-10.4); Monocytes # 0.5 10^3/uL (0.2-0.9); Monocytes % 5.2 %; Neutrophils # 6.55 10^3/uL (1.8-7.7); Neutrophils % 65.6 %; Nucleated Red Blood Cells % 0 %; Platelet Count 338 10^3/cmm (157-399); Red Blood Count 4.99 10^6/uL (3.85-5.65); Red Cell Distribution Width 12.9 % (12.1-15.1); White Blood Count 9.98 10^3/uL (3.29-11.43)
--- NOTE | 2023-05-28 19:02 | W.ED.ABDPA2 ---
HPI - Abdominal Pain General: Chief Complaint: Abdominal Pain Stated Complaint: lower abd left pain cramping nausea Time Seen by Provider: 05/28/23 18:27 History of Present Illness: Presents to the ER with left lower quadrant/pelvic abdominal pain. Patient says been going on for the last several days. Also complains of nausea intermittently as well as body aches. Patient said there is nothing makes his pain better or worse. Patient denies any diarrhea constipation dysuria frequency hematuria fevers chills etc. Patient is sitting in the bed no acute distress and is nontoxic in appearance. Review of Systems General: Reports: 10 or more systems reviewed and unremarkable except in HPI and below PFSH ED PFSH: Surgical History [place] teeth extracted No significant past surgical history Social History Smoking and tobacco/nicotine status: never used tobacco/nicotine Alcohol intake: never Substance/Drug Use: never Physical Exam Const: COMMON NORMALS: no acute distress, average body habitus, patient oriented x3, no limitations, healthy appearing, alert and well nourished Neck/C-Spine: COMMON NORMALS: no JVD Chest: COMMONS NORMALS: normal inspection of the chest and normal palpation of entire chest wall Resp: COMMON NORMALS: normal respiratory effort, No retractions, No use of accessory muscles and clear to auscultation bilaterally AUSCULTATION: clear to auscultation bilaterally Cardio: COMMON NORMALS: no JVD, regular rate, regular rhythm, S1 normal heart sound present, S2 normal heart sound present, No gallops present (Cardio), No clicks present (Cardio), No murmurs present (Cardio) and No rub (Cardio) RATE: regular rate RHYTHM: regular rhythm HEART SOUNDS: S1 normal heart sound present and S2 normal heart sound present GI: COMMON NORMALS: Normal to inspection, nondistended, normoactive bowel sounds present, Soft to palpation, non-tender, No hepatosplenomegaly present and no masses PALPATION: Yes Soft to palpation and Yes No hepatosplenomegaly present Neuro: COMMON NORMALS: patient oriented x3 SENSORIUM/ORIENTATION: Yes alert Course Vital Signs: Vital signs: Vital Signs Temperature 98.0 F 05/28/23 22:31 Pulse Rate 82 05/28/23 22:31 Respiratory Rate 14 05/28/23 22:31 Blood Pressure 131/79 05/28/23 22:31 Pulse Oximetry 99 05/28/23 22:31 Oxygen Delivery Me thod Room Air 05/28/23 18:24 MDM - Abdominal Pain Medical Decision Making Patient has lab work done that included CBC CMP UA hCG as well as a transvaginal ultrasound. Lab work and urinalysis was essentially benign except for beta-hCG that has increased from approximately 420-630 and about 10 days. Transvaginal ultrasound did not show an intrauterine gestation did show right cyst. These results was explained and talked about in detail to the patient's patient already has an appointment in 1 week for another ultrasound. And she was instructed to get her quantitative beta-hCG drawn around the same time. Otherwise patient be discharged and should follow-up with her PCP/POLICY LOAN CALCULATOR after her next ultrasound. Differential Diagnosis Likely abdominal pain; Unlikely acute appendicitis, calculus of kidney, constipation, diverticulitis, endometriosis, gastroenteritis, pancreatitis or small bowel obstruction Medical Records I reviewed the patient's medical records. Lab Data I reviewed the patient's lab results. 05/28/23 18:47 05/28/23 18:47 Labs/Radiology: Radiology Impressions Transvaginal US 05/28/23 19:38 IMPRESSION: 1. No intrauterine gestation demonstrated currently. 2. 2.7 cm cystic appearing structure right adnexal region. 3. Information provided indicates patient has positive test, pelvic pain, elevating HCG, recent miscarriage. 4. Ectopic or other process not completely excluded. Close correlation with serial serum HCG levels recommended. Short-term follow-up ultrasound study recommended within 1-4 weeks, or sooner if indicated. Laboratory Results WBC 9.98 10^3/uL (3.29-11.43) 05/28/23 18:47 RBC 4.99 10^6/uL (3.85-5.65) 05/28/23 18:47 Hgb 14.30 g/dL (11.27-16.99) 05/28/23 18:47 Hct 43.4 % (36-47) 05/28/23 18:47 MCV 87.0 fl (85-98) 05/28/23 18:47 MCH 28.7 pg (27-33) 05/28/23 18:47 MCHC 32.9 g/dL (30-55) 05/28/23 18:47 RDW 12.9 % (12.1-15.1) 05/28/23 18:47 Plt Count 338 10^3/cmm (157-399) 05/28/23 18:47 MPV 9.4 fL (7.4-10.4) 05/28/23 18:47 Neut % (Auto) 65.6 % 05/28/23 18:47 Lymph % (Auto) 27.8 % 05/28/23 18:47 [place] % (Auto) 5.2 % 05/28/23 18:47 Eos % (Auto) 1.0 % 05/28/23 18:47 Baso % (Auto) 0.2 % 05/28/23 18:47 Neut # (Auto) 6.55 10^3/uL (1.8-7.7) 05/28/23 18:47 Lymph # (Auto) 2.8 10^3/uL (0.8-4.8) 05/28/23 18:47 [place] # (Auto) 0.5 10^3/uL (0.2-0.9) 05/28/23 18:47 Eos # (Auto) 0.1 10^3/uL (0.0-0.8) 05/28/23 18:47 Baso # (Auto) 0.0 10^3/uL (0.0-0.1) 05/28/23 18:47 Nucleated RBC % (auto) 0 % 05/28/23 18:47 Nucleated RBCs # 0.0 /100WBC 05/28/23 18:47 Sodium 136 mmol/L (136-145) 05/28/23 18:47 Potassium 3.7 mmol/L (3.5-5.1) 05/28/23 18:47 Chloride 103 mmol/L (98-107) 05/28/23 18:47 Carbon Dioxide 26 mmol/L (22-29) 05/28/23 18:47 Anion Gap 10.7 (5-19) 05/28/23 18:47 BUN 13 mg/dL (6-20) 05/28/23 18:47 Creatinine 0.8 mg/dL (0.5-0.9) 05/28/23 18:47 GFR Calculation 90.5 mL/min (90-130) 05/28/23 18:47 Glucose 96 mg/dL (65-115) 05/28/23 18:47 Calculated Osmolality 282 mOsm/kg (285-295) L 05/28/23 18:47 Calcium 9.0 mg/dL (8.5-10.5) 05/28/23 18:47 Total Bilirubin 0.2 mg/dL (0.15-1.2) 05/28/23 18:47 AST 13 U/L (0-32) 05/28/23 18:47 ALT 14 U/L (0-33) 05/28/23 18:47 Alkaline Phosphatase 96 U/L (35-105) 05/28/23 18:47 Total Protein 6.5 g/dL (6.6-8.7) L 05/28/23 18:47 Albumin 3.9 g/dL (3.5-5.2) 05/28/23 18:47 Globulin 2.6 g/dL (1.3-4.6) 05/28/23 18:47 Lipase 29 U/L (13-60) 05/28/23 18:47 Ser , Semi-Qnt 639.70 mIU/mL 05/28/23 18:47 Urine Color Yellow (Yellow) 05/28/23 18:33 Urine Appearance Clear (CLEAR) 05/28/23 18:33 Urine pH 5 (5-7) 05/28/23 18:33 Ur Specific [place] 1.020 (1.005-1.030) 05/28/23 18:33 Urine Protein Neg (Negative) 05/28/23 18:33 Urine Glucose (UA) Norm (Normal) 05/28/23 18:33 Urine Ketones 1+ (Negative) H 05/28/23 18:33 Urine Blood Neg (Negative) 05/28/23 18:33 Urine Nitrate Negative (Negative) 05/28/23 18:33 Urine Bilirubin Neg (Negative) 05/28/23 18:33 Urine Urobilinogen Norm mg/dL (Negative) 05/28/23 18:33 Ur Leukocyte Esterase Negative (Negative) 05/28/23 18:33 All radiology interpretation(s) finalized by discharge Discharge Plan Discharge Patient Disposition: Home Clinical Impression: Pelvic pain, Elevated serum hCG Condition: Stable Prescriptions: No Action Probiotic PO ahajhupu-vpc-Vr-FA 1 mg Tablet 1 tab PO DAILY Discharge Orders: Discharge ED (Routine); Ordered 05/28/23 Ordered By: Jono Cosme Referrals: Godfrey Morales MD [Primary Care Provider] - 1 week Patient Instructions: Pelvic Pain in Women (ED) Activity Restrictions/Additional Instructions: Your quantitative beta-hCG was 639. Your ultrasound did not show any evidence of intrauterine however this would not be abnormal with such a low hCG. It did show a cyst on your right side but this should not explain the pain on your left side. Your findings are inconclusive. Please keep your appointment for the ultrasound in approximately 1 week and should have your beta-hCG repeated around the same time. If you have worsening pain please feel free to return to the ER as things may have changed. Coding Level of Care Code ED Audit Mgr for Helena Staton
[2023-05-28 19:33] LABS: Alanine Aminotransferase 14 U/L (0-33); Albumin Level 3.9 g/dL (3.5-5.2); Alkaline Phosphatase 96 U/L (35-105); Anion Gap 10.7 (5-19); Aspartate Amino Transferase 13 U/L (0-32); Blood Urea Nitrogen 13 mg/dL (6-20); Carbon Dioxide 26 mmol/L (22-29); Chloride 103 mmol/L (98-107); Globulin 2.6 g/dL (1.3-4.6); Glomerular Filtration Rate 90.5 mL/min (90-130); Glucose 96 mg/dL (65-115); Lipase 29 U/L (13-60); Osmolality Calculated 282 mOsm/kg (285-295); Potassium 3.7 mmol/L (3.5-5.1); Sodium 136 mmol/L (136-145); Total Bilirubin 0.2 mg/dL (0.15-1.2); Total Protein 6.5 g/dL (6.6-8.7)
--- NOTE | 2023-05-28 19:38 | USR_ITS ---
PROCEDURE INFORMATION: Exam: US Pelvis, Transvaginal Exam date and time: 05/28/2023 8:19 PM Age: 23 years old Clinical indication: Pelvic pain; Patient HX: Patient has positive test. No iup identified at this time. ; Additional info: Pelvic pain, elevating hcg, recent miscarriage TECHNIQUE: Imaging protocol: Real-time transvaginal pelvic ultrasound with image documentation. Transvaginal imaging was used for better evaluation of the endometrium, adnexa, and/or cervix. COMPARISON: US OB limited [id number] 04/08/2023 8:20 PM FINDINGS: Uterus: Uterus measures 7.11 cm x 4.27 cm x 3.44 cm. Uterus appears anti flexion/neutral to slightly anteverted, measured 7.11 x 3.44 x 4.27 cm. Cervix: Cervix appears grossly unremarkable. Right ovary/adnexa: Right ovary measured 2.1 x 1.7 x 1.4 cm, appears to contain follicles. Ovoid or ellipsoid cystic appearing structure measured about 2.7 cm projects right adnexal region. On the prior study from 04/08/2023, evidence of cystic structure right ovary/right adnexal region measured at 2.85 cm. Left ovary/adnexa: Left ovary measured at 2.1 by 2.0 x 1.8 cm, appears to contain follicles. Gestation: No intrauterine gestational sac demonstrated. Vasculature: Evidence of blood flow, vascularity demonstrated of ovaries bilaterally using color and spectral Doppler. Intraperitoneal space: Otherwise, no free pelvic fluid demonstrated of cul de sac. US/US transvaginal [id number] IMPRESSION: 1. No intrauterine gestation demonstrated currently. 2. 2.7 cm cystic appearing structure right adnexal region. 3. Information provided indicates patient has positive test, pelvic pain, elevating HCG, recent miscarriage. 4. Ectopic or other process not completely excluded. Close correlation with serial serum HCG levels recommended. Short-term follow-up ultrasound study recommended within 1-4 weeks, or sooner if indicated.
[2023-05-28 22:31] VITALS: BP 131/79; PULSE 82; RESP 14; TEMP 36.7; O2SAT 99
== END 2023-05-28 22:32 | disposition home or self-care (01) ==
PROVIDERS: Emergency Provider Emergency Medicine; PCP Family Medicine
DX: R10.2 Pelvic and perineal pain (principal); R89.1 Abnormal level of hormones in specimens from other organs, systems and tissues
CPT/HCPCS: 36415; 76801; 76817; 76830; 80053; 81003; 83690; 84702; 85025; 99284

== ENCOUNTER 2023-06-03 06:11 | Outpatient (CLI) | payer OTHER, BC, MEDICAID, SELFPAY ==
--- NOTE | 2023-06-03 06:15 | US_ITS ---
WS: [id number] EARLY OBSTETRICAL ULTRASOUND (<14 WEEKS). HISTORY: Dating US COMPARISON: 05/28/2023 Transabdominal and transvaginal imaging submitted. Uterus is anteverted and normal size. No intrauter ine gestation. No endometrial thickening. Endometrium measures 0.3 mm. There is no free fluid in the cul-de-sac. Both ovaries are identified and normal. No adnexal masses. IMPRESSION: 1. No intrauterine gestation identified within the endometrium. There is no endometrial thickening. 2. Normal adnexa. No findings suggestive of ectopic . No free fluid. If there is a positive beta-hCG ectopic is not excluded.
== END 2023-06-03 06:12 | disposition home or self-care (01) ==
LOC: RAD 06:11
PROVIDERS: PCP Family Medicine; Visit Provider Family Medicine
DX: O36.80X0 Pregnancy with inconclusive fetal viability, not applicable or unspecified (principal); Z3A.14 14 weeks gestation of pregnancy
CPT/HCPCS: 76801; 84702

== ENCOUNTER → 2023-06-29 16:38 | Outpatient (BNVA) | payer OTHER, BC, MEDICAID, SELFPAY | PROVIDERS: PCP Family Medicine; Visit Provider Family Medicine | DX: R79.89 Other specified abnormal findings of blood chemistry (principal) | CPT/HCPCS: 84702 ==

== ENCOUNTER 2023-09-28 06:14 | Outpatient (CLI) | payer OTHER, SELFPAY ==
--- NOTE | 2023-09-28 06:30 | USR_ITS ---
PROCEDURE INFORMATION: Exam: US First Trimester, Transabdominal Exam date and time: 09/28/2023 6:28 AM Age: 23 years old Clinical indication: Screening exam; Routine US, uterus; Additional info: Dating US - next 1-2 weeks if possible LABS AND CLINICAL REPORTS: Gestational age (Established): 14 w 2 d Estimated due date (Established): 03/26/2024 TECHNIQUE: Imaging protocol: Real-time transabdominal obstetrical ultrasound of the maternal pelvis and a first trimester , less than 14 weeks 0 days, with image documentation. COMPARISON: US OB <= 14 weeks fetus [id number] 06/03/2023 6:20 AM FINDINGS: GESTATION: Gestation: Intrauterine gestation. Yolk sac is not visible Embryonic/ heart rate: 153 bpm Extra-embryonic membranes/Placenta: Posterior and low lying placenta. Marginal placenta previa. Follow-up exam is recommended. No subchorionic bleed. Amniotic/Chorionic fluid: Amniotic and extra-amniotic fluid are normal for gestational age. BRUCE 11.9 cm BIOMETRY: Gestational age (AUA): 15 weeks CURRY 03/21/2024 BPD 2.8 cm 15 weeks HC: 10.44 cm 15 weeks HC 8.66 cm 15 weeks FL 1.61 cm 14 weeks 5 days EFW 100 8 g (4 oz) 76 percentile A MATERNAL: Uterus: Unremarkable. Cervix: Cervical length measures 3.5 cm. The cervical os is closed. Right ovary/adnexa: Obscured by lack of adequate acoustic window. Left ovary/adnexa: Obscured by lack of adequate acoustic window. Intraperitoneal space: No intraperitoneal free fluid. US/US OB <= 14 weeks fetus [id number] IMPRESSION: 1. Single living intrauterine gestation. 2. Gestational age 15 weeks CURRY 03/21/2024 3. Posterior low lying placenta with marginal placenta previa 4. BRUCE 11.9 cm.
== END 2023-09-28 06:15 | disposition home or self-care (01) ==
LOC: RAD 06:14
PROVIDERS: PCP Family Medicine; Visit Provider Family Medicine
DX: Z34.81 Encounter for supervision of other normal pregnancy, first trimester (principal); Z3A.15 15 weeks gestation of pregnancy
CPT/HCPCS: 76801; 80307; 81000; 81025; 84144; 84443; 84702; 85025; 86592; 86762; 86803; 86850; 86900; 87086; 87340; 87491; 87591; 87806

== ENCOUNTER 2023-10-11 17:27 | Emergency (ER) | payer OTHER, SELFPAY ==
[2023-10-11 17:29] VITALS: BP 117/79; PULSE 89; RESP 16; TEMP 36.4; O2SAT 99
--- NOTE | 2023-10-11 20:11 | ECG_ITS ---
[facility] Test Date: 2023-10-11 Pat Name: Shelly Wong Department: Room: Gender: Female Sample Maker Original: : 2000 Requested By: Kris Salcedo Order Number: [id number] Brian MD: Hema Roe M.D. Measurements Intervals [place] Rate: 77 P: 56 CO: 124 QRS: 74 QRSD: 87 T: 56 QT: 363 QTc: 413 Interpretive Statements SINUS RHYTHM No previous ECG available for comparison Electronically Signed On 10-12-2023 8:58:07 CDT by Hema Roe M.D. [email or web address]
[2023-10-11 20:23] LABS: Basophils % 0.2 %; Eosinophils % 0.2 %; Lymphocytes # 1.8 10^3/uL (0.8-4.8); Lymphocytes % 10.4 %; Mean Corpuscular Hemoglobin 28.9 pg (27-33); Mean Corpuscular Volume 82.5 fl (85-98); Mean Platelet Volume 9.5 fL (7.4-10.4); Monocytes # 0.5 10^3/uL (0.2-0.9); Monocytes % 2.6 %; Neutrophils # 15.12 10^3/uL (1.8-7.7); Neutrophils % 86.2 %; Nucleated Red Blood Cells % 0 %; Platelet Count 349 10^3/cmm (157-399); Red Blood Count 5.09 10^6/uL (3.85-5.65); Red Cell Distribution Width 13.7 % (12.1-15.1); White Blood Count 17.52 10^3/uL (3.29-11.43)
[2023-10-11 20:38] LABS: Alanine Aminotransferase 22 U/L (0-33); Albumin Level 4.2 g/dL (3.5-5.2); Alkaline Phosphatase 105 U/L (35-105); Anion Gap 16.9 (5-19); Aspartate Amino Transferase 17 U/L (0-32); Blood Urea Nitrogen 5 mg/dL (6-20); Calcium 9.5 mg/dL (8.5-10.5); Carbon Dioxide 23 mmol/L (22-29); Chloride 103 mmol/L (98-107); Creatinine Clr Calc Pharmacy 204.4758; Globulin 3.5 g/dL (1.3-4.6); Glomerular Filtration Rate 155.7 mL/min (90-130); Glucose 95 mg/dL (65-115); Lipase 27 U/L (13-60); Osmolality Calculated 285 mOsm/kg (285-295); Potassium 3.9 mmol/L (3.5-5.1); Sodium 139 mmol/L (136-145); Total Bilirubin 0.4 mg/dL (0.15-1.2); Total Protein 7.7 g/dL (6.6-8.7)
--- NOTE | 2023-10-11 20:58 | ED_ITS ---
HPI - Dizziness 2 General: Chief Complaint: Dizziness Stated Complaint: Dizzy, 16 weeks Time Seen by Provider: 10/11/23 19:55 Source: patient Mode of arrival: ambulatory Limitations: no limitations History of Present Illness: HPI Narrative: Patient is a 23-year-old female who presents to the emergency department complaining of dizziness onset today. Patient is currently 17 weeks and states that she developed the symptoms today, and had issues with morning sickness in her first trimester. This is not her first and she states that with prior pregnancies she became dizzy with subsequent miscarriages. However she is not having any bleeding or abdominal pain that she had with those times. She states that she is also been nauseous and has not wanted to eat. She states that she called her OB and they told her to eat something as her blood sugar might have been low. She does note that she had issues with low blood sugar with prior pregnancies as well. She states that she could not keep it down as she was too nauseous. Also notes some weakness. She does, and states that she has not been drinking enough water. No other symptoms to report at this time. Has not taken anything for her symptoms. MD elicited complaint: dizziness Onset (ago): hour(s) Timing: gradual onset Severity: mild Description: sense of movement Context: other () History of similar symptoms: Yes Relieving factors: nothing Associated symptoms: Reports nausea; Denies chest pain, chills, headache(s), palpitations or vomiting Associated neuro symptoms: Deny numbness in extremities Review of Systems 2 General: Reports: 10 or more systems reviewed and unremarkable except in HPI and below Const: Denies: fever(s), chills or fatigue Eyes: Denies: change in vision ENMT: Denies: throat pain, ear or mastoid pain or nasal discharge Card: Denies: chest pain, palpitations, swelling of feet/ankles or lightheadedness Resp: Denies: dyspnea, productive cough or wheezing GI: Reports: nausea; Denies: abdominal pain, vomiting, diarrhea or constipation : Denies: flank pain, difficulty voiding, dysuria or urinary frequency Musc: Reports: muscle weakness; Denies: neck pain, back pain or joint pain Skin/Breast: Denies: rash Neuro: Reports: dizziness; Denies: headache(s) or numbness in extremities PFSH ED 2 PFSH: Surgical History [place] teeth extracted No significant past surgical history Social History Smoking and tobacco/nicotine status: never used tobacco/nicotine Alcohol intake: never Substance/Drug Use: never Physical Exam 2 Const: COMMON NORMALS: no acute distress, patient oriented x3 and no limitations GENERAL APPEARANCE: cooperative, comfortable and well developed ORIENTATION/CONSCIOUSNESS: Yes awake, Yes oriented to person, Yes oriented to place and Yes oriented to time HENMT: COMMON NORMALS: normocephalic, atraumatic and hearing grossly normal bilaterally HEAD & SCALP: normocephalic and atraumatic Eye: COMMON NORMALS: Equal, round and reactive pupils present, EOMs intact bilaterally and conjunctivae normal CONJUNCTIVA: Yes conjunctivae normal P UPIL: Yes Equal, round and reactive pupils present Neck/C-Spine: COMMON NORMALS: full ROM, supple and no JVD Resp: COMMON NORMALS: normal respiratory effort, No retractions, No use of accessory muscles and clear to auscultation bilaterally AUSCULTATION: clear to auscultation bilaterally Cardio: COMMON NORMALS: no JVD, regular rate, regular rhythm, No clicks present (Cardio), No murmurs present (Cardio) and No rub (Cardio) RATE: r egular rate RHYTHM: regular rhythm GI: COMMON NORMALS: Normal to inspection, nondistended, normoactive bowel sounds present, Soft to palpation and non-tender INSPECTION: Yes gravid abdomen AUSCULTATION: Yes normoactive bowel sounds PALPATION: Yes Soft to palpation RECTAL EXAM: deferred Extremity: COMMON NORMALS: normal to inspection, full ROM and capillary refill normal Neuro: COMMON NORMALS: patient oriented x3, CN's II-XII intact bilaterally, moves all extremities, no focal motor deficits and no sensory deficits noted SENSORIUM/ORIENTATION: Yes oriented to person, Yes oriented to place and Yes oriented to time Psych: COMMON NORMALS: mental status grossly normal and Normal thought process present THOUGHT PROCESS: Normal thought process present Skin: COMMON NORMALS: no rashes or lesions noted GENERAL SKIN EXAM: no rashes or lesions noted Course 2 Vital Signs: Vital signs: Vital Signs Temperature 97.6 F 10/11/23 17:29 Pulse Rate 89 10/11/23 17:29 Respiratory Rate 16 10/11/23 17:29 Blood Pressure 117/79 10/11/23 17:29 Pulse Oximetry 99 10/11/23 17:29 Oxygen Delivery Me thod Room Air 10/11/23 17:29 MDM - Dizziness Medical Decision Making Patient is 70 weeks and presents with dizziness beginning today. States her nausea and dizziness have been worsening in second trimester. She has not been having any abdominal pain or vaginal bleeding or other concerning signs of compromise at this time. Her vitals were normal on arrival. She did have a few episodes of vomiting while here in the emergency department. Her blood work was all unremarkable, white count found to be elevated, likely secondary to leukocytosis. She is started on fluids as I do think that she is dehydrated, she notes very little intake. Her EKG demonstrated normal sinus rhythm with no acute ST segment changes. Urinalysis did not show any signs of infection. She is still dizzy upon recheck, so we will try meclizine for vertigo, as this could potentially be causing her worsening nausea as well. She denies trying this at any point in time. She also was instructed to call her OB tomorrow to schedule an appointment earlier, sometime this week. At this time there is no concern that this is affecting the fetus, and she is instructed to return with any onset of abdominal pain or vaginal bleeding. Otherwise she will follow-up with OB. Case discussed with supervising ED physician, Dr. Prakash, who agrees at this time. Lab Data 10/11/23 20:15 10/11/23 20:15 Laboratory Results WBC 17.52 10^3/uL (3.29-11.43) H 10/11/23 20:15 RBC 5.09 10^6/uL (3.85-5.65) 10/11/23 20:15 Hgb 14.70 g/dL (11.27-16.99) 10/11/23 20:15 Hct 42.0 % (36-47) 10/11/23 20:15 MCV 82.5 fl (85-98) L 10/11/23 20:15 MCH 28.9 pg (27-33) 10/11/23 20:15 MCHC 35.0 g/dL (30-55) 10/11/23 20:15 RDW 13.7 % (12.1-15.1) 10/11/23 20:15 Plt Count 349 10^3/cmm (157-399) 10/11/23 20:15 MPV 9.5 fL (7.4-10.4) 10/11/23 20:15 Neut % (Auto) 86.2 % 10/11/23 20:15 Lymph % (Auto) 10.4 % 10/11/23 20:15 [place] % (Auto) 2.6 % 10/11/23 20:15 Eos % (Auto) 0.2 % 10/11/23 20:15 Baso % (Auto) 0.2 % 10/11/23 20:15 Neut # (Auto) 15.12 10^3/uL (1.8-7.7) H 10/11/23 20:15 Lymph # (Auto) 1.8 10^3/uL (0.8-4.8) 10/11/23 20:15 [place] # (Auto) 0.5 10^3/uL (0.2-0.9) 10/11/23 20:15 Eos # (Auto) 0.0 10^3/uL (0.0-0.8) 10/11/23 20:15 Baso # (Auto) 0.0 10^3/uL (0.0-0.1) 10/11/23 20:15 Nucleated RBC % (auto) 0 % 10/11/23 20:15 Nucleated RBCs # 0.0 /100WBC 10/11/23 20:15 Sodium 139 mmol/L (136-145) 10/11/23 20:15 Potassium 3.9 mmol/L (3.5-5.1) 10/11/23 20:15 Chloride 103 mmol/L (98-107) 10/11/23 20:15 Carbon Dioxide 23 mmol/L (22-29) 10/11/23 20:15 Anion Gap 16.9 (5-19) 10/11/23 20:15 BUN 5 mg/dL (6-20) L 10/11/23 20:15 Creatinine 0.5 mg/dL (0.5-0.9) 10/11/23 20:15 GFR Calculation 155.7 mL/min (90-130) H 10/11/23 20:15 Glucose 95 mg/dL (65-115) 10/11/23 20:15 Calculated Osmolality 285 mOsm/kg (285-295) 10/11/23 20:15 Calcium 9.5 mg/dL (8.5-10.5) 10/11/23 20:15 Total Bilirubin 0.4 mg/dL (0.15-1.2) 10/11/23 20:15 AST 17 U/L (0-32) 10/11/23 20:15 ALT 22 U/L (0-33) 10/11/23 20:15 Alkaline Phosphatase 105 U/L (35-105) 10/11/23 20:15 Total Protein 7.7 g/dL (6.6-8.7) 10/11/23 20:15 Albumin 4.2 g/dL (3.5-5.2) 10/11/23 20:15 Globulin 3.5 g/dL (1.3-4.6) 10/11/23 20:15 Lipase 27 U/L (13-60) 10/11/23 20:15 Urine Color Yellow (Yellow) 10/11/23 21:19 Urine Appearance Clear (CLEAR) 10/11/23 21:19 Urine pH 6 (5-7) 10/11/23 21:19 Ur Specific [place] 1.020 (1.005-1.030) 10/11/23 21:19 Urine Protein Trace (Negative) 10/11/23 21:19 Urine Glucose (UA) Norm (Normal) 10/11/23 21:19 Urine Ketones 3+ (Negative) H 10/11/23 21:19 Urine Blood Neg (Negative) 10/11/23 21:19 Urine Nitrate Negative (Negative) 10/11/23 21:19 Urine Bilirubin Neg (Negative) 10/11/23 21:19 Urine Urobilinogen Neg mg/dL (Negative) 10/11/23 21:19 Ur Leukocyte Esterase Negative (Negative) 10/11/23 21:19 Urine RBC None /hpf (0-2) 10/11/23 21:19 Urine WBC None /hpf (0-5) 10/11/23 21:19 Ur Squamous Epith Cells 0-4 /hpf (0-5) H 10/11/23 21:19 Amorphous Sediment Not Reportable 10/11/23 21:19 Urine Bacteria Trace /hpf (NONE) 10/11/23 21:19 Urine Mucus 2+ /hpf 10/11/23 21:19 No radiology studies performed this visit Discharge Plan Discharge Patient Disposition: Home Clinical Impression: Dizziness Condition: Stable Prescriptions: New meclizine 25 mg tablet 25 mg PO BID PRN (Reason: dizziness) Qty: 30 0RF No Action rqpjebhr-[id number]-Ho-FA 1 mg Tablet 1 tab PO DAILY Discharge Orders: Discharge ED (Routine); Ordered 10/11/23 Ordered By: Kris Reyes Referrals: Godfrey Morales MD [Primary Care Provider] - Discharge Diet: Usual diet Discharge Activity: Increase activity as tolerated Patient Instructions: Vertigo (ED), Dizziness (ED) Activity Restrictions/Additional Instructions: Meclizine as prescribed. Please call OB tomorrow to schedule an earlier appointment. Continue drinking plenty of fluids. If you develop any abdominal pain, vaginal bleeding, or other concerning symptoms please return to the emergency department immediately for reevaluation. Coding Level of Care Code ED Project Landscape Architect for Helena Staton
[2023-10-11] MEDS: sodium chloride 0.9% 1,000 ML 999 ML IV (21:24)
[2023-10-11 21:41] LABS: Protein Urine Trace (Negative); Urine Appearance Clear (CLEAR); Urine Color Yellow (Yellow); pH Urine 6 (5-7)
[2023-10-11 21:42] LABS: Glucose Urine UA Norm (Normal)
[2023-10-11 22:02] LABS: Add Urine Culture? No; Add Urine Microscopic? YES; Bacteria Urine TRACE /hpf; Bilirubin Urine Neg (Negative); Blood Urine Neg (Negative); Ketones Urine 3+ (Negative); Leukocyte Esterase Urine Negative (Negative); Mucus Urine 2+ /hpf; Nitrate Urine Negative (Negative); Squamous Epithelial Cell Urine 0-4 /hpf (0-5); Urobilinogen Urine Neg (Negative)
[2023-10-11] MEDS: meclizine 25 mg tablet PO (22:40)
[2023-10-11 22:47] VITALS: PULSE 98; RESP 16; O2SAT 100
[2023-10-11 22:48] VITALS: BP 117/79; PULSE 98; RESP 16; TEMP 36.4; O2SAT 100
== END 2023-10-11 22:49 | disposition home or self-care (01) ==
PROVIDERS: Emergency Medicine; Emergency Provider Physician Assistant; PCP Family Medicine
DX: O26.892 Other specified pregnancy related conditions, second trimester (principal); R42 Dizziness and giddiness; Z3A.16 16 weeks gestation of pregnancy
CPT/HCPCS: 80053; 81001; 83690; 85025; 93005; 96360; 99284; J7030; J8597

== ENCOUNTER 2023-11-09 06:15 | Outpatient (CLI) | payer OTHER, SELFPAY ==
--- NOTE | 2023-11-09 06:15 | USR_ITS ---
PROCEDURE INFORMATION: Exam: US After First Trimester, Transabdominal Exam date and time: 11/09/2023 6:26 AM Age: 23 years old Clinical indication: Screening exam; Routine US, uterus; Additional info: Anatomy US - about 4 weeks from now LABS AND CLINICAL REPORTS: Gestational age (Established): 20 w 4 d Estimated due date (Established): 03/24/2024 TECHNIQUE: Imaging protocol: Real-time transabdominal obstetrical ultrasound of the maternal pelvis and a second or third trimester with image documentation. COMPARISON: US OB <= 14 weeks fetus [id number] 09/28/2023 6:28 AM FINDINGS: Gestation: Single live intrauterine in a breech position at the present time heart rate: 153 bpm Placenta: Unremarkable. No subchorionic bleed. Placenta is posterior with marginal placenta previa.. Amniotic fluid (Qualitative): Amniotic fluid is normal for gestational age. Amniotic fluid index: BRUCE is 9.69 cm. ANATOMY: head, spine, stomach, four-chamber heart, kidneys, bladder, three-vessel cord, upper and lower extremities were adequately demonstrated. No acute abnormalities detected. BIOMETRY: Gestational age (AUA): 20 weeks 0 days Estimated due date (AUA): 03/28/2024 Estimated weight: 334.49 g. EFW x AC, BPD, FL, HC, [place] 1985 Biparietal diameter (BPD): 4.66 cm. EGA (BPD) is 20 w 1 d. 29.3 % percentile Head circumference (HC): 17.71 cm. EGA (HC) is 20 w 1 d. 24.7 % percentile Abdominal circumference (AC): 14.79 cm. EGA (AC) is 20 w 0 d. 27.3 % percentile Femur length (FL): 3.27 cm. EGA (FL) is 20 w 1 d. 29.1 % percentile HC/AC: 1.2. (Normal range: 1.08 - 1.25) FL/HC: 18.46. (Normal range: 16.8 - 19.8) FL/BPD: 70.17 FL/AC: 22.11 MATERNAL: Uterus: Unremarkable. Cervix: Cervical length measures 4.4 cm. Right ovary/adnexa: Not evaluated Left ovary/adnexa: Not evaluated Intraperitoneal space: No intraperitoneal free fluid. US/US OB >= 14 weeks fetus [id number] IMPRESSION: Single viable intrauterine with gestational age based on present parameters is 20 weeks 0 days. Posterior placenta low lying with evidence of marginal placenta previa. Continued follow-up advised.
== END 2023-11-09 06:22 | disposition home or self-care (01) ==
PROVIDERS: PCP Family Medicine; Visit Provider Family Medicine
DX: Z34.81 Encounter for supervision of other normal pregnancy, first trimester (principal); Z36.89 Encounter for other specified antenatal screening
CPT/HCPCS: 76805

== ENCOUNTER → 2023-12-16 10:49 | Outpatient (BNVA) | payer OTHER, SELFPAY | PROVIDERS: PCP Family Medicine; Visit Provider Family Medicine | DX: Z34.81 Encounter for supervision of other normal pregnancy, first trimester (principal) | CPT/HCPCS: 82950 ==

== ENCOUNTER 2023-12-17 08:46 | Outpatient (CLI) | payer OTHER, SELFPAY ==
[2023-12-17 09:04] VITALS: BP 121/74; PULSE 97
[2023-12-17 09:06] VITALS: BMI 34.7
[2023-12-17 09:19] VITALS: BP 122/77; PULSE 103
[2023-12-17 09:34] VITALS: BP 117/77; PULSE 100
[2023-12-17 09:44] LABS: Nitrazine Paper, PH Negative
[2023-12-17 09:45] LABS: Actim Prom Negative
[2023-12-17 09:49] VITALS: BP 107/75; PULSE 96
== END 2023-12-17 10:05 | disposition home or self-care (01) ==
LOC: OPOB 08:48 → OBGYN 08:50
PROVIDERS: PCP Family Medicine; Visit Provider Family Medicine
DX: O26.899 Other specified pregnancy related conditions, unspecified trimester (principal); Z3A.00 Weeks of gestation of pregnancy not specified; N89.8 Other specified noninflammatory disorders of vagina
CPT/HCPCS: 83986; 84112; 99211

== ENCOUNTER 2024-01-27 06:15 | Outpatient (CLI) | payer OTHER, BC, MEDICAID, SELFPAY ==
--- NOTE | 2024-01-27 06:15 | USR_ITS ---
PROCEDURE INFORMATION: Exam: US , Limited Exam date and time: 01/27/2024 6:21 AM Age: 23 years old Clinical indication: Screening exam; Routine US, uterus; Additional info: Placental location - prior marginal placenta previa LABS AND CLINICAL REPORTS: Gestational age (Established): 31 w 4 d Estimated due date (Established): 03/26/2024 TECHNIQUE: Imaging protocol: Real-time ultrasound of the maternal uterus with image documentation. Exam focused on the clinical indication. COMPARISON: US OB >= 14 weeks fetus [id number] 11/09/2023 6:26 AM FINDINGS: Gestation: Intrauterine gestation. Vertex presentation. Posterior placenta without previa heart rate: 152 bpm Amniotic fluid index: BRUCE is 14.95 cm. BIOMETRY: Gestational age (AUA): Clinical gestational age 31 weeks 4 days CUR[place] 03/26/2024. MATERNAL: Cervix: Cervical length measures 3.3 cm. US/US OB limited [id number] IMPRESSION: 1. Single living intrauterine gestation. 2. Gestational age 31 weeks 4 days CUR[place] 03/26/2024. 3. Posterior placenta 4. BRUCE 14.9 cm
== END 2024-01-27 06:16 | disposition home or self-care (01) ==
PROVIDERS: PCP Family Medicine; Visit Provider Family Medicine
DX: O44.03 Complete placenta previa NOS or without hemorrhage, third trimester (principal)
CPT/HCPCS: 76815

== ENCOUNTER → 2024-01-28 10:34 | Outpatient (BNVA) | payer OTHER, BC, MEDICAID, SELFPAY | PROVIDERS: PCP Family Medicine; Visit Provider Family Medicine | DX: Z51.81 Encounter for therapeutic drug level monitoring (principal) | CPT/HCPCS: 85025 ==

== ENCOUNTER → 2024-03-10 08:13 | Outpatient (BNVA) | payer OTHER, BC, MEDICAID, SELFPAY | PROVIDERS: PCP Family Medicine; Visit Provider Family Medicine | DX: Z34.90 Encounter for supervision of normal pregnancy, unspecified, unspecified trimester (principal) | CPT/HCPCS: 87081 ==

== ENCOUNTER 2024-03-26 13:15 | Inpatient (IN) | payer OTHER, BC, MEDICAID, SELFPAY ==
[2024-03-26] VITALS (35 sets, daily range): BP systolic 104–148; BP diastolic 55–98; PULSE 70–118; RESP 17; BMI 37.3
[2024-03-26] MEDS: ampicillin 2,000 MG in sodium chloride 0.9% (plus) 50 ML 100 MG IV (14:09)
[2024-03-26] MEDS: dextrose 5%-sod chloride 0.45% 1,000 ML 125 ML IV (14:09)
[2024-03-26 14:10] LABS: Basophils % 0.2 %; Eosinophils # 0.1 10^3/uL (0.0-0.8); Eosinophils % 0.3 %; Hematocrit 36.1 % (36-47); Lymphocytes # 2.4 10^3/uL (0.8-4.8); Lymphocytes % 15.2 %; Mean Corpuscular HGB Conc 33.5 g/dL (30-55); Mean Corpuscular Hemoglobin 29.3 pg (27-33); Mean Corpuscular Volume 87.4 fl (85-98); Mean Platelet Volume 10.2 fL (7.4-10.4); Monocytes # 0.8 10^3/uL (0.2-0.9); Monocytes % 4.7 %; Neutrophils # 12.43 10^3/uL (1.8-7.7); Neutrophils % 78.5 %; Nucleated Red Blood Cells % 0 %; Platelet Count 229 10^3/cmm (157-399); Red Blood Count 4.13 10^6/uL (3.85-5.65); Red Cell Distribution Width 17.2 % (12.1-15.1); White Blood Count 15.83 10^3/uL (3.29-11.43)
[2024-03-26] MEDS: oxytocin 30 UNIT/500 ML BAG 4 UNIT IV (14:10)
--- NOTE | 2024-03-26 15:40 | P.HP_ITS ---
Providers/Chief Complaint 2 Primary Care Provider: Godfrey Morales MD Chief Complaint: IOL History of Present Illness Shelly Wong is a 24 year old @ 40.0 weeks by LMP c/w 15 wk US. Preg c/b h/o anemia, anxiety off of Lexapro, GBS positive. The patient presents to labor and delivery for a scheduled induction of labor due to postdates. She currently feels well. She has a mild headache, otherwise denies any chest pains, shortness of breath, nausea, vomiting, leaks fluid, vaginal bleeding, vision changes. In clinic she was 1 cm and 50% effaced and upon presentation she is 2 cm dilated and 50% effaced. Medications/Allergies Home Medications Medication Instructions Recorded Confirmed Last Taken Type [id number]-[id number] 1 mg 1 tab PO DAILY 07/15/22 03/24/24 12/13/23 History tablet doxylamine succinate 25 mg tablet See Rx Instructions .Route 10/12/23 03/24/24 12/17/23 07:00 Rx .COMPLEX PRN nausea #30 tabs pyridoxine (vitamin B6) 100 mg 100 mg PO BID PRN Nausea #60 tabs 10/12/23 03/24/24 12/17/23 07:00 Rx tablet ferrous sulfate 325 mg (65 mg 325 mg PO BID #60 tabs 01/31/24 03/24/24 Unknown Rx iron) tablet Allergies Allergy/AdvReac Type Severity Reaction Status Date / Time Sulfa (Sulfonamide Allergy ADR-Numbnes Verified 01/28/24 09:57 Antibiotics) s PFSH Acute 2 PFSH: Surgical History [place] teeth extracted Social History Smoking and tobacco/nicotine status: never used tobacco/nicotine Alcohol intake: never Substance/Drug Use: never Female Reproductive History: : 4 Vitals/I&O/Wt Last Vital Signs Pulse 102 H 03/26/24 15:34 Resp 17 03/26/24 13:39 BP 130/79 03/26/24 15:34 O2 Del Method Room Air 03/26/24 14:00 Weight last 48 hrs Weight 231 lb Physical Exam 2 Narrative: General: Alert and oriented x3 Eyes: Pupils equal round and reactive to light and accommodation Mouth: Mucous membranes moist, pharynx non-erythematous Cardiac: Regular rate and rhythm without murmurs Lungs: Clear to auscultation bilaterally without wheezes, crackles or rhonchi Abdomen: Soft, non-tender, fundus consistent with gestational age Extremities: Trace edema in the bilateral lower extremities Data 03/26/24 14:00 A&P Assessment and plan (1) Supervision of normal intrauterine in multigravida: The patient is doing well at this time. She has been started on IV Pitocin for induction of labor. Her contractions are currently every 2 to 4 minutes. She is on 12 units of Pitocin. heart tones are in the mid 120s with moderate variability good accelerations with a category 1 tracing. The patient is GBS positive and has been started on ampicillin for GBS prophylaxis. We will plan to proceed with routine care otherwise. All questions were answered. The patient and her are in agreement with the current plan of care. Qualifiers: Trimester: first trimester Qualified Code(s): Z34.81 - Encounter for supervision of other normal , first trimester Attestations 2 Medical Necessity Statement*: The patient will be here for greater than 2 midnights due to routine intrapartum and management of labor and delivery. Coding Level of Care Code Acute Code for Chg Fwd Diagnoses Supervision of normal intrauterine in multigravida in first trimester Z34.81 Trimester: first trimester
[2024-03-26] MEDS: ampicillin 1,000 MG in sodium chloride 0.9% (plus) 50 ML 100 MG IV ×2 (18:12→22:16)
[2024-03-27] VITALS (17 sets, daily range): BP systolic 105–137; BP diastolic 57–88; PULSE 82–123; RESP 14–18; TEMP 36.6–36.8; O2SAT 97–99
[2024-03-27] MEDS: ampicillin 1,000 MG in sodium chloride 0.9% (plus) 50 ML 100 MG IV (02:03)
--- NOTE | 2024-03-27 03:07 | PM.DELIVERY ---
Delivery Note: Date of delivery: March 27, 2024 Pre-delivery diagnoses: 1. Intrauterine at 40.1 weeks gestation. 2. Anxiety 3. GBS positive Post-delivery diagnoses: 1. Intrauterine status post spontaneous vaginal delivery at 40.1 weeks gestation. 2. Anxiety 3. GBS positive 4. Delivery of healthy female weighing 8 pounds 2 ounces with Apgars of 9 and 9 Procedure: Spontaneous vaginal delivery Delivering Physician: Godfrey Morales MD Estimated blood loss (mL): 300 Findings: 1. Healthy female weighing 8 pounds 2 ounces with Apgars of 9 and 9 2. Intact placenta Pre-Delivery Course: Shelly Wong is a 24 year old G5 now [id number] status post spontaneous vaginal delivery @ 40.1 weeks by LMP c/w 15 wk US. Preg c/b h/o anemia, anxiety off of Lexapro, GBS positive. The patient presented to labor and delivery for a scheduled induction of labor due to postdates. She was feeling well upon presentation. She had a mild headache, otherwise denied any chest pains, shortness of breath, nausea, vomiting, leaks fluid, vaginal bleeding, vision changes. Upon presentation she was 2 cm dilated and 50% effaced. The patient was started on IV Pitocin for induction of labor at approximately 2:30 PM on 03/26/2024. The patient responded well and had regular contractions. She initially did not make rapid change, however eventually started to dilate and SROM took place at 2157 on 03/26/2024. Clear fluid was noted. The patient then made more rapid change and was complete by 2:25 AM on 03/27/2024. The patient did not want an epidural. Delivery: The patient began pushing at 2:25 AM on 03/27/2024. The patient pushed well and the descended quickly. The delivered in the OA position at 2:31 AM on 03/27/2024. The right shoulder was the anterior shoulder. It delivered with ease. The right arm was wrapped across his body and delivered. The left arm was also crossed across her body and delivered next. Finally the left shoulder delivered. The rest of the infant delivered without complication. The infant took a breath immediately upon delivery. The mouth and nose were bulb suction by myself. The infant was then placed on the mother's chest where the nurses were awaiting to care for her. The cord was clamped by myself after approximately 1 minute and cut by the infant's father. Cord blood was obtained. The cord was then drained of blood and traction was placed on umbilical cord. The placenta delivered without complication at 2:36 AM on 03/27/2024. The placenta was noted to be intact with a central umbilical cord insertion site. IV Pitocin was bolused. The patient had heavier bleeding initially and uterine massage was carried out. She continued to bleed more heavily. The cervix was inspected using a ring forceps. No lacerations were noted. The patient's bleeding then began to decline. The vaginal wall was inspected and there were bilateral abrasions on the periurethral region. No suturing was necessary. Currently both the mother and are doing well. History History History 5 Term 2 0 Miscarriages/Ectopic 3 Living Children 2 Past Pregnancies Del. Date GA/Weeks Outcome Route Wt Inf Gender Labor Lgth Comp. Anesthesia Location 06/18/21 8 spontaneous 07/26/22 40 live - full term [facility] live - full [facility] 8 lb [facility] Date: 03/27/24 Last Updated by: Godfrey Morales MD Heavy bleeding initially after delivery that resolved with uterine massage and IV pitocin alone, GBS positive A&P Assessment and plan (1) Spontaneous vaginal delivery: Coding Level of Care Code Acute Code for Chg Fwd Diagnoses Spontaneous vaginal delivery O80
[2024-03-27] MEDS: benzocaine-menthol 78 gm Canister 1 SPRAY TOPICAL (04:45)
[2024-03-27] MEDS: lanolin oint 7 gm 1 APPLIC TOPICAL (04:45)
[2024-03-27] MEDS: acetaminophen 325 mg Tablet 650 MG PO (12:35)
[2024-03-27 15:20] LABS: Mean Corpuscular Hemoglobin 29.4 pg (27-33); Mean Platelet Volume 10.7 fL (7.4-10.4); Platelet Count 214 10^3/cmm (157-399); Red Blood Count 3.37 10^6/uL (3.85-5.65); Red Cell Distribution Width 17.2 % (12.1-15.1)
[2024-03-27] MEDS: ibuprofen 800 mg tablet PO ×2 (15:30→21:10)
[2024-03-27] MEDS: docusate sodium 100 mg Capsule PO (17:59)
[2024-03-28] MEDS: calcium carbonate 500 mg Chew Tablet 1000 MG PO (02:44)
[2024-03-28 04:15] VITALS: BP 104/71; PULSE 105; RESP 18; TEMP 36.5; O2SAT 98
[2024-03-28] MEDS: ibuprofen 800 mg tablet PO (08:54)
[2024-03-28] MEDS: docusate sodium 100 mg Capsule PO (08:54)
[2024-03-28] MEDS: PRENATAL VIT NO.130/IRON/FOLIC 1 EACH TABLET PO (08:54)
--- NOTE | 2024-03-28 09:20 | PM.DCS ---
Discharge Providers Date of Admission: 03/26/24 13:15 Date of Discharge: March 28, 2024 Attending Provider at Admission: Godfrey Morales MD Attending Provider at Discharge: Godfrey Morales MD Primary Care Provider: Godfrey Morales MD Diagnoses at Discharge Discharge Diagnosis (1) Spontaneous vaginal delivery: Status: Resolved Other Information Additional DC diagnoses/information: 1. Intrauterine status post spontaneous vaginal delivery at 40.1 weeks gestation. 2. Anxiety 3. GBS positive 4. Delivery of healthy infant female weighing 8 pounds 2 ounces with Apgars of 9 and 9 Reason for Visit Reason for Visit: IOL Brief History: Shelly Wong is a 24 year old G5 now P2032 status post spontaneous vaginal delivery @ 40.1 weeks by LMP c/w 15 wk US. Preg c/b h/o anemia, anxiety off of Lexapro, GBS positive. The patient presented to labor and delivery for a scheduled induction of labor due to postdates. She was feeling well upon presentation. She had a mild headache, otherwise denied any chest pains, shortness of breath, nausea, vomiting, leaks fluid, vaginal bleeding, vision changes. Hospital Course Hospital Course Upon presentation she was 2 cm dilated and 50% effaced. The patient was started on IV Pitocin for induction of labor at approximately 2:30 PM on 03/26/2024. The patient responded well and had regular contractions. The patient was complete by 2:25 AM on 03/27/2024. The patient did not want an epidural. The patient had an uncomplicated vaginal delivery. She had no cervical or vaginal lacerations other than a small abrasion on the bilateral periurethral region. Her pain has been well-controlled . She is ambulating, voiding, passing gas and tolerating food by mouth. Her bleeding is decreasing well. She has been breast-feeding and this has been going well. Routine discharge instructions were discussed with the patient and all questions were answered. The patient and her are in agreement with discharge home at this time. Physical Exam Narrative: General: Alert and oriented x3 Cardiac: Regular rate and rhythm without murmurs Lungs: Clear to auscultation bilaterally without wheezes, crackles or rhonchi Abdomen: Soft, mild tenderness over uterus. The uterus is firm and 2 cm below the umbilicus. Extremities: Trace edema in the bilateral lower extremities Discharge Data Studies Completed and Pending Laboratory Results WBC 17.20 10^3/uL (3.29-11.43) H 03/27/24 15:09 RBC 3.37 10^6/uL (3.85-5.65) L 03/27/24 15:09 Hgb 9.90 g/dL (11.27-16.99) L 03/27/24 15:09 Hct 30.0 % (36-47) L 03/27/24 15:09 MCV 89.0 fl (85-98) 03/27/24 15:09 MCH 29.4 pg (27-33) 03/27/24 15:09 MCHC 33.0 g/dL (30-55) 03/27/24 15:09 RDW 17.2 % (12.1-15.1) H 03/27/24 15:09 Plt Count 214 10^3/cmm (157-399) 03/27/24 15:09 MPV 10.7 fL (7.4-10.4) H 03/27/24 15:09 Neut % (Auto) 78.5 % 03/26/24 14:00 Lymph % (Auto) 15.2 % 03/26/24 14:00 [place] % (Auto) 4.7 % 03/26/24 14:00 Eos % (Auto) 0.3 % 03/26/24 14:00 Baso % (Auto) 0.2 % 03/26/24 14:00 Neut # (Auto) 12.43 10^3/uL (1.8-7.7) H 03/26/24 14:00 Lymph # (Auto) 2.4 10^3/uL (0.8-4.8) 03/26/24 14:00 [place] # (Auto) 0.8 10^3/uL (0.2-0.9) 03/26/24 14:00 Eos # (Auto) 0.1 10^3/uL (0.0-0.8) 03/26/24 14:00 Baso # (Auto) 0.0 10^3/uL (0.0-0.1) 03/26/24 14:00 Nucleated RBC % (auto) 0 % 03/26/24 14:00 Nucleated RBCs # 0.0 /100WBC 03/26/24 14:00 Blood Type A Positive 03/26/24 14:00 Rho(D) Type Rh positive 03/26/24 14:00 Antibody Screen Negative 03/26/24 14:00 Vitals Last Vital Signs Temp 97.7 F 03/28/24 04:15 Pulse 105 H 03/28/24 04:15 Resp 18 03/28/24 04:15 BP 104/71 03/28/24 04:15 Pulse Ox 98 03/28/24 04:15 O2 Del Method Room Air 03/28/24 04:15 Discharge Plan Discharge Patient Disposition: Home Condition: Good Prescriptions: New ibuprofen 800 mg Tablet 800 mg PO TID Qty: 60 0RF Continued pyridoxine (vitamin B6) 100 mg tablet 100 mg PO BID PRN (Reason: Nausea) Qty: 60 3RF doxylamine succinate 25 mg tablet See Rx Instructions .Route .COMPLEX PRN (Reason: nausea) Qty: 30 6RF Rx Instructions: Take 1 tab by mouth each evening and 1/2 tab in the am as needed for nausea PRN; [id number] 1 mg Tablet 1 tab PO DAILY Changed ferrous sulfate 325 mg (65 mg iron) tablet 325 mg PO DAILY Qty: 30 3RF Discharge Orders: Discharge Order (Routine); Ordered 03/28/24 Ordered By: Godfrey Morales Referrals: Godfrey Morales MD [Primary Care Provider] - 6 Weeks Discharge Diet: Regular Discharge Activity: Increase activity as tolerated Patient Instructions: Ibuprofen (By mouth), Depression (DC), Perineal Care (DC), Bleeding (DC), Preeclampsia and Eclampsia After Delivery (GEN), Opioid Safety, [facility] Activity Restrictions/Additional Instructions: Nothing per vagina for 6 weeks. I would recommend showers instead of baths for the first 6 weeks. Discharge Attestations Time Spent in Discharge Care*: less than 30 min Quality Metrics Clinical Quality Measures [ No reported AMI, CVA or VTE this stay] Coding Level of Care Code Acute Code for Chg Fwd Diagnoses Spontaneous vaginal delivery O80
[2024-03-28 11:30] VITALS: BP 111/68; PULSE 88; RESP 16; TEMP 36.7; O2SAT 98
== END 2024-03-28 11:40 | disposition home or self-care (01) | DRG 807 ==
LOC: OPOB 13:15 → OBGYN 03-27 02:11
PROVIDERS: Admitting Provider Family Medicine; PCP Family Medicine; Visit Provider Family Medicine
DX: O99.824 Streptococcus B carrier state complicating childbirth (principal); Z37.0 Single live birth; Z3A.40 40 weeks gestation of pregnancy; O48.0 Post-term pregnancy; D64.9 Anemia, unspecified; O99.02 Anemia complicating childbirth
CPT/HCPCS: 36415; 59025; 59409; 85025; 85027; 86850; 86900; 98960; 99211; J0290; J2590; J7799

== ENCOUNTER → 2024-06-16 15:58 | Outpatient (BNVA) | payer OTHER, BC, MEDICAID, SELFPAY | PROVIDERS: PCP Family Medicine; Visit Provider Family Medicine | DX: J02.9 Acute pharyngitis, unspecified (principal) | CPT/HCPCS: 87880 ==

== ENCOUNTER → 2024-10-02 18:05 | Outpatient (BNVA) | payer OTHER, BC, MEDICAID, SELFPAY | PROVIDERS: PCP Family Medicine; Visit Provider Family Medicine | DX: R52 Pain, unspecified (principal); S93.141A Subluxation of metatarsophalangeal joint of right great toe, initial encounter; X58.XXXA Exposure to other specified factors, initial encounter | CPT/HCPCS: 73630 ==

== ENCOUNTER 2024-10-20 08:12 | Outpatient (CLI) | payer OTHER, BC, MEDICAID, SELFPAY ==
--- NOTE | 2024-10-20 08:00 | MR_ITS ---
WS: [id number] MRI RIGHT FOOT WITHOUT CONTRAST. COMPARISON: Radiograph 10/02/2024 Multiplanar, multisequence imaging is performed without contrast. History: Pain for 2 to 3 months, persistent pain along the midfoot region. Marker is placed over the area of pain which corresponds to the first and second proximal metatarsals. No marrow edema or acute fracture is identified. Mild hallux valgus deformity of the first metatarsal phalangeal joint. There is no widening between the first and second metatarsals. The Lisfranc ligament is not well identified. There are no secondary findings of Lisfranc ligament injury. No edema or fluid. No avulsion fracture from the medial margin of the second metatarsal. Visualized tendons and ligaments are unremarkable. No joint effusion. MR/MR foot RT wo con* [id number] IMPRESSION: 1. No fractures or marrow edema. 2. Mild hallux valgus deformity. 3. No soft tissue edema. 4. No secondary findings of Lisfranc ligament injury. 5. Note: This MRI examination was performed of the entire ankle and foot which limits evaluation for fine detail including the Lisfranc ligament. Field-of-vi ew was too large for quality imaging of small ligaments. If this MRI does not p rovide an answer of the clinical question suggest repeating this MRI of the mid foot only for better detail. No additional charge to the patient. Recommend add itional MRI imaging on the Altair magnet.
== END 2024-10-20 08:13 | disposition home or self-care (01) ==
LOC: RAD 08:15
PROVIDERS: PCP Family Medicine; Visit Provider Podiatrist Foot & Ankle Surgery
DX: S93.621A Sprain of tarsometatarsal ligament of right foot, initial encounter (principal); X58.XXXA Exposure to other specified factors, initial encounter
CPT/HCPCS: 73718

== ENCOUNTER 2024-11-01 15:39 | Outpatient (CLI) | payer OTHER, BC, MEDICAID, SELFPAY ==
--- NOTE | 2024-11-01 16:00 | MR_ITS ---
WS: [id number] MRI RIGHT FOOT WITHOUT CONTRAST. COMPARISON: Radiograph 10/02/2024 and prior MRI 10/20/2024 Multiplanar, multisequence imaging is performed without contrast. Normal tarsometatarsal alignment. Very subtle area of blunting involving the medial inferior first cuneiform which could potentially represent a small fracture. There is no significant amount of marrow edema but on one image only there does appear to be a small osseous fragment. No marrow edema in the second metatarsal. Lisfranc joint: The interosseous band is intact. Dorsal band is very small caliber but does appear to be intact. No adjacent fluid. The plantar band contains increased signal and there is partial tear at the attachment site to the first cuneiform. There is edema extending between the first and second p roximal metatarsals. Remaining ligaments and tendons surrounding the midfoot are normal. MR/MR foot RT wo con* [id number] IMPRESSION: 1. Soft tissue edema between the proximal first and second metatarsals. 2. Normal alignment of the first and second metatarsals with respect to the cu neiforms. 3. Partial tear of the plantar band of the Lisfranc ligament. Tear is from the distal lateral first cuneiform. There are also findings suspicious for tiny av ulsion fracture as there is blunting of the cuneiform cortex. Findings consiste nt with a mild midfoot sprain.
== END 2024-11-01 15:40 | disposition home or self-care (01) ==
LOC: RAD 15:39
PROVIDERS: PCP Family Medicine; Visit Provider Podiatrist Foot & Ankle Surgery
DX: S93.621A Sprain of tarsometatarsal ligament of right foot, initial encounter (principal); M79.671 Pain in right foot; M79.89 Other specified soft tissue disorders; S93.691A Other sprain of right foot, initial encounter; X58.XXXA Exposure to other specified factors, initial encounter
CPT/HCPCS: 73718

== ENCOUNTER 2024-11-08 09:25 | Outpatient (CLI) | payer OTHER, BC, MEDICAID, SELFPAY | END 2024-11-08 09:26 | disposition home or self-care (01) | LOC: SPT 09:25 | PROVIDERS: PCP Family Medicine; Visit Provider Podiatrist Foot & Ankle Surgery | DX: Z46.89 Encounter for fitting and adjustment of other specified devices (principal); S93.621D Sprain of tarsometatarsal ligament of right foot, subsequent encounter; X58.XXXD Exposure to other specified factors, subsequent encounter | CPT/HCPCS: 97760; L4361 ==

== ENCOUNTER → 2024-11-29 07:13 | Outpatient (BNVA) | payer OTHER, BC, MEDICAID, SELFPAY | PROVIDERS: PCP Family Medicine; Visit Provider Podiatrist Foot & Ankle Surgery | DX: M79.671 Pain in right foot (principal); S93.621A Sprain of tarsometatarsal ligament of right foot, initial encounter; M21.611 Bunion of right foot; X58.XXXA Exposure to other specified factors, initial encounter | CPT/HCPCS: 73630 ==

== ENCOUNTER → 2025-03-09 07:46 | Outpatient (BNVA) | payer OTHER, BC, SELFPAY | PROVIDERS: PCP Family Medicine; Visit Provider Obstetrics & Gynecology | DX: Z34.91 Encounter for supervision of normal pregnancy, unspecified, first trimester (principal); Z3A.09 9 weeks gestation of pregnancy; N91.2 Amenorrhea, unspecified | CPT/HCPCS: 81025; 84702 ==